=== PATIENT | male | born 1950 | race Two or more races ===

== ENCOUNTER 2017-03-08 10:27 | Emergency (ER) | payer OTHER ==
[2017-03-08 10:51] VITALS: BMI 39.4
--- NOTE | 2017-03-08 11:32 | PDOC ---
History of Present Illness - General Chief Complaint: Cold Symptoms Stated Complaint: COLD, COUGH Time Seen by Provider: 03/08/17 11:00 History Source: Patient Exam Limitations: No Limitations - History of Present Illness Initial Comments: 03/08/17 11:27 66 y.o. M with pmh of htn, hld, asthma/COPD, and atrial fibrillation presenting with productive cough x 1 day. Patient states he began having cough productive of white sputum that began yesterday and gradually worsened. Patient endorses rhinorrhea. Patient denies fever, chills, chest pain, sob, dyspnea on exertion, n/v/d/c, hemoptysis, lower extremity edema. Patient has been hospitalized in the past for asthma exacerbations but never been intubated. PSH- eye surgery ALL- NKDA SH- Denies PCP- Mariana Duenas Past History - Past Medical History Allergies/Adverse Reactions: Allergies Allergy/AdvReac Type Severity Reaction Status Date / Time No Known Allergies Allergy Verified 03/08/17 10:51 Home Medications: Ambulatory Orders Furosemide [Lasix -] 40 mg PO DAILY 08/23/12 Simvastatin [Zocor -] 20 mg PO DAILY 08/23/12 Tiotropium [place] [Spiriva] 1 inh IH DAILY 08/23/12 Albuterol Sulfate [Proventil HFA Inhaler -] 1 - 2 inh PO TID #1 inhaler Brimonidine Tartrate/Timolol [Combigan 0.2%-0.5% Eye Drops] 1 drop OU TID Loteprednol Etabonate [Alrex] 1 drop OS BID 02/18/17 Albuterol Sulfate 0.042% [Ventolin 0.042% (Half-Strength) -] 1 amp NEB Q6H PRN # 0 amp 02/20/17 Apixaban [Eliquis -] 5 mg PO BID #60 tablet 02/20/17 Aspirin Coated [Ecotrin -] 81 mg PO DAILY tab 02/20/17 Budesonide/Formeterol Fumarate [SYMBICORT 160/4.5mcg -] 2 puff IH BID #1 inhaler 02/20/17 Digoxin [Lanoxin -] 0.125 mg PO DAILY #30 tablet 02/20/17 Diltiazem Cd [Cardizem Cd -] 240 mg PO DAILY #30 cap.cd.24h 02/20/17 Furosemide [Lasix -] 40 mg PO DAILY #0 tablet 02/20/17 Methimazole [Tapazole -] 5 mg PO DAILY #30 tablet 02/20/17 Prednisone [Deltasone -] 20 mg PO DAILY #20 tablet 02/20/17 Tiotropium [place] [Spiriva] 1 puff IH DAILY #0 inh 02/20/17 Apixaban [Eliquis] 5 mg PO DAILY 03/08/17 Asthma: Yes Cancer: No Cardiac Disorders: Yes (CHF) COPD: Yes Diabetes: Yes HTN: Yes Hypercholesterolemia: Yes - Immunization History Immunization Up to Date: Yes - Suicide/Smoking/Psychosocial Hx Smoking Status: No Smoking History: Former smoker Have you smoked in the past 12 months: No Number of Cigarettes Smoked Daily: 0 If you are a former smoker, when did you quit?: 1979 Information on smoking cessation initiated: No Hx Alcohol Use: No Drug/Substance Use Hx: No Substance Use Type: None Hx Substance Use Treatment: No Review of Systems - Review of Systems Able to Perform ROS?: Yes Comments:: 03/08/17 11:30 GENERAL/CONSTITUTIONAL: No fever or chills. No weakness. HEAD, EYES, EARS, NOSE AND THROAT: No change in vision. No ear pain or discharge. No sore throat. +rhinorrhea CARDIOVASCULAR: No chest pain or shortness of breath RESPIRATORY: +cough, +wheezing, No hemoptysis. GASTROINTESTINAL: No nausea, vomiting, diarrhea or constipation. GENITOURINARY: No dysuria, frequency, or change in urination. MUSCULOSKELETAL: No joint or muscle swelling or pain. No neck or back pain. SKIN: No rash NEUROLOGIC: No headache, vertigo, loss of consciousness, or change in strength/ sensation. ENDOCRINE: No increased thirst. No abnormal weight change HEMATOLOGIC/LYMPHATIC: No anemia, easy bleeding, or history of blood clots. ALLERGIC/IMMUNOLOGIC: No hives or skin allergy. *Physical Exam - Vital Signs Last Vital Signs Temp Pulse Resp BP Pulse Ox 98.9 F 94 H 18 122/58 96 03/08/17 10:42 03/08/17 10:42 03/08/17 10:42 03/08/17 10:42 03/08/17 10:42 - Physical Exam Comments: 03/08/17 11:30 GENERAL: Awake, alert, and fully oriented, in no acute distress HEAD: No signs of trauma, normocephalic, atraumatic EYES: PERRLA, EOMI, sclera anicteric, conjunctiva injected ENT: Auricles normal inspection, hearing grossly normal, nares patent, oropharynx clear without exudates. Moist mucosa NECK: Normal ROM, supple, no lymphadenopathy, JVD, or masses LUNGS: No distress, speaks full sentences, clear to auscultation bilaterally, poor air movement HEART: Regular rate and rhythm, normal S1 and S2, no murmurs, rubs or gallops, peripheral pulses normal and equal bilaterally. ABDOMEN: Soft, nontender, normoactive bowel sounds. No guarding, no rebound. No masses EXTREMITIES: Normal inspection, Normal range of motion, no edema. No clubbing or cyanosis. NEUROLOGICAL: Cranial nerves II through XII grossly intact. Normal speech, normal gait, no focal sensorimotor deficits SKIN: Warm, Dry, normal turgor, no rashes or lesions noted. ED Treatment Course - LABORATORY CBC & Chemistry Diagram: 03/08/17 11:52 03/08/17 11:52 - RADIOLOGY Radiology Studies Ordered: Category Date Time Status CHEST PA & LAT [RAD] Stat Radiology 03/08/17 11:20 Ordered Medical Decision Making - Medical Decision Making 03/08/17 11:32 66 y.o M with pmh of asthma presenting with productive cough x 1 day. Differential: URI, Pneumonia, Influenza Plan: CBC, CMP, BNP, EKG, CXR, Influenza swab, CT chest 03/08/17 17:10 CXR-recommends CT Chest for evaluation of hilar LAD CT chest- no acute changes. Report faxed to PCP. Patient stable for D.c *DC/Admit/Observation/Transfer Diagnosis at time of Disposition: Acute bronchitis Qualifiers: Bronchitis organism: unspecified organism Qualified Code(s): J20.9 - Acute bronchitis, unspecified; J20.9 - Acute bronchitis, unspecified - Discharge Dispostion Disposition: HOME Condition at time of disposition: Stable - Referrals Referrals: Mariana Smith [Primary Care Provider] - - Patient Instructions Printed Discharge Instructions: DI for Acute Bronchitis Additional Instructions: follow up with dr. Santos this week. call tomorrow to schedule. return for any problems or concerns.
--- NOTE | 2017-03-08 11:58 | PDOC ---
Attending Attestation - Resident Resident Name: AndriarayrayRaull - ED Attending Attestation I have performed the following: I have examined & evaluated the patient, The case was reviewed & discussed with the resident, I agree w/resident's findings & plan, Exceptions are as noted - HPI HPI: 03/08/17 11:57 66 yo male with h/o htn, asthma/ copd, afib on pradaxa, chf, here with cough x 1 days. productive white sputum. no cp no fever or chills. no sob. mild rhinorrhea. no f/c. no n/v no cp or sob. no other complaints. 03/08/17 13:42 03/08/17 14:19 chart review. pt was admitted with wheezing one month ago. was evaluated with ct chest. showed concerns for infiltrate. tx with nebs abx. was seen by dr. hernandez, . had recent follow up with dr fuentes ( [facility] in [place] ) . [phone] 03/08/17 14:21 - Physicial Exam PE: 03/08/17 13:43 awake alert lungs clear heart rrr no mrg. abd soft nd. ext wpp. left eye injected. eomi. nuero alert oriented. skin warm and dry. 03/08/17 14:21 - Medical Decision Making 03/08/17 13:44 plan differential bronchtis, pna, viral uri, plan cxr labs ekg. reassess labs normal. ekg sinus rhytm. no st elevation or depression. left axis. sxs mild normal exam. will dc home. has followup for eye tomorrow with opthomologist. 03/08/17 14:21 Heart Score/ECG Review #1 General ECG Interpretation: Sinus Rhythm, Normal Rate (77), Normal Intervals, No acute ischemic changes
[2017-03-08 12:09] LABS: BASOPHIL 0.8 % (0-2.0); EOSINOPHIL 5.7 % (0-4.5); MCH 28.4 pg (25.7-33.7); MCHC 32.2 g/dl (32.0-35.9); MEAN CELL VOLUME 88.3 fl (80-96); MEAN PLT VOLUME 8.5 fl (7.5-11.1); NEUTROPHILS 50.9 % (42.8-82.8); PLATELET COUNT 182 K/MM3 (134-434); RDW 16.2 % (11.9-15.9); WHITE BLOOD COUNT 6.5 K/mm3 (4.0-10.0)
[2017-03-08 12:26] LABS: ALBUMIN 3.3 g/dl (3.4-5.0); ANION GAP 6 (8-16); BILIRUBIN,TOTAL 0.6 mg/dL (0.2-1.0); CALCIUM 9.4 mg/dL (8.5-10.1); CO2 33 mmol/L (21-32); CREATININE 0.8 mg/dL (0.7-1.3); GLUCOSE,RANDOM 100 mg/dL (74-106); SGOT/AST 23 U/L (15-37); SGPT/ALT 42 U/L (12-78); TOT PROT 7.3 g/dl (6.4-8.2)
[2017-03-08 12:27] LABS: ALK PHOS 68 U/L (45-117)
[2017-03-08 17:20] VITALS: BP 143/73; PULSE 83; TEMP 98.5
--- NOTE | 2017-03-09 09:14 | EKG ---
Test Reason : Blood Pressure : / mmHG Vent. Rate : 077 BPM Atrial Rate : 077 BPM P-R Int : 168 ms QRS Dur : 104 ms QT Int : 360 ms P-R-T Axes : 066 -51 069 degrees QTc Int : 407 ms NORMAL SINUS RHYTHM LEFT AXIS DEVIATION INFERIOR INFARCT (CITED ON OR BEFORE 08-MAR-2017) ABNORMAL ECG WHEN COMPARED WITH ECG OF 13-FEB-2017 15:45, NO SIGNIFICANT CHANGE WAS FOUND Confirmed by BURT MCLAUGHLIN MD ([id number]) on 03/09/2017 9:13:30 AM Referred By: Confirmed By:BURT MCLAUGHLIN MD
== END 2017-03-08 17:20 | disposition home or self-care (01) ==
LOC: JER 10:27
DX: J20.9 Acute bronchitis, unspecified (principal); I10 Essential (primary) hypertension; I48.91 Unspecified atrial fibrillation; I50.9 Heart failure, unspecified; J45.909 Unspecified asthma, uncomplicated; J44.9 Chronic obstructive pulmonary disease, unspecified; E78.5 Hyperlipidemia, unspecified; E11.9 Type 2 diabetes mellitus without complications; Z79.01 Long term (current) use of anticoagulants; Z79.82 Long term (current) use of aspirin; Z87.891 Personal history of nicotine dependence
CPT/HCPCS: 36415; 71020-TC; 71260-TC; 80053; 83880; 85025; 87804; 93005; 93010; 99284-25

== ENCOUNTER 2017-11-07 18:39 | Emergency (ER) | payer OTHER ==
--- NOTE | 2017-11-07 18:51 | PDOC ---
Rapid Medical Evaluation Chief Complaint: Wound Time Seen by Provider: 11/07/17 18:42 Medical Evaluation: Allergies Allergy/AdvReac Type Severity Reaction Status Date / Time No Known Allergies Allergy Verified 11/07/17 18:43 11/07/17 18:47 I have performed a brief in-person evaluation of this patient. The patient presents with a chief complaint of:RLE redness and itching x 3 days. H/o HTN, asthma/copd, afib on pradaxa, CHF Pertinent physical exam findings: extensive area of non-blanchable, erythematous patch to RLE w/ ? multiple bites I have ordered the following:labs The patient will proceed to the ED for further evaluation. Discharge Disposition - Diagnosis Rash and nonspecific skin eruption - Referrals - Patient Instructions - Post Discharge Activity
[2017-11-07 18:52] VITALS: BMI 37.5
[2017-11-07 19:04] LABS: EOS % 3.2 % (0-4.5); HEMATOCRIT 46.7 % (35.4-49); HEMOGLOBIN 15.4 GM/dL (11.7-16.9); LYMPH % 32.5 % (8-40); MCH 28.8 pg (25.7-33.7); MEAN CELL VOLUME 87.1 fl (80-96); MEAN PLT VOLUME 8.7 fl (7.5-11.1); MONO % 9.5 % (3.8-10.2); NEUT % 53.8 % (42.8-82.8); PLATELET COUNT 307 K/MM3 (134-434); RBC 5.37 M/mm3 (4.00-5.60); RDW 15.4 % (11.9-15.9); WHITE BLOOD COUNT 10.3 K/mm3 (4.0-10.0)
--- NOTE | 2017-11-07 20:06 | PDOC ---
History of Present Illness - General Chief Complaint: Wound Stated Complaint: BITE WOUND Time Seen by Provider: 11/07/17 18:42 - History of Present Illness Initial Comments: 11/07/17 20:02 67 year old male with a hx of HTN, HLD, COPD, A fib (not on AC), CHF presents to the hospital for 2 day hx RLE erythema. He states that he was in his garage and thinks he may have been bitten by mosquitos. He reports that his right leg has been progressively becoming more red and pruritic. He tried hydrocortisone cream, which did not alleviate his symptoms. Denies chest pain, SOB, nausea, vomiting, diarrhea, fevers, chills. Allergies: motrin PSH: L eye surgery many years ago Smoke: former Drink: none Drugs: none PMD: Dr. Smith Past History - Past Medical History Allergies/Adverse Reactions: Allergies Allergy/AdvReac Type Severity Reaction Status Date / Time No Known Allergies Allergy Verified 11/07/17 18:43 Home Medications: Ambulatory Orders Furosemide [Lasix -] 40 mg PO DAILY 08/23/12 Simvastatin [Zocor -] 20 mg PO DAILY 08/23/12 Tiotropium [place] [Spiriva] 1 inh IH DAILY 08/23/12 Albuterol Sulfate [Proventil HFA Inhaler -] 1 - 2 inh PO TID #1 inhaler Brimonidine Tartrate/Timolol [Combigan 0.2%-0.5% Eye Drops] 1 drop OU TID Loteprednol Etabonate [Alrex] 1 drop OS BID 02/18/17 Albuterol Sulfate 0.042% [Ventolin 0.042% (Half-Strength) -] 1 amp NEB Q6H PRN # 0 amp 02/20/17 Apixaban [Eliquis -] 5 mg PO BID #60 tablet 02/20/17 Aspirin Coated [Ecotrin -] 81 mg PO DAILY tab 02/20/17 Budesonide/Formeterol Fumarate [SYMBICORT 160/4.5mcg -] 2 puff IH BID #1 inhaler 02/20/17 Digoxin [Lanoxin -] 0.125 mg PO DAILY #30 tablet 02/20/17 Diltiazem Cd [Cardizem Cd -] 240 mg PO DAILY #30 cap.cd.24h 02/20/17 Furosemide [Lasix -] 40 mg PO DAILY #0 tablet 02/20/17 Methimazole [Tapazole -] 5 mg PO DAILY #30 tablet 02/20/17 Tiotropium [place] [Spiriva] 1 puff IH DAILY #0 inh 02/20/17 predniSONE [Deltasone -] 20 mg PO DAILY #20 tablet 02/20/17 Apixaban [Eliquis] 5 mg PO DAILY 03/08/17 Amoxicillin/Potassium Clav [Augmentin 875-125 Tablet] 1 each PO BID #18 tablet 11/07/17 Asthma: Yes Cancer: No Cardiac Disorders: Yes (CHF) COPD: Yes Diabetes: Yes HTN: Yes Hypercholesterolemia: Yes - Immunization History Immunization Up to Date: Yes - Suicide/Smoking/Psychosocial Hx Smoking Status: No Smoking History: Never smoked Have you smoked in the past 12 months: No Number of Cigarettes Smoked Daily: 0 If you are a former smoker, when did you quit?: 1979 Hx Alcohol Use: No Drug/Substance Use Hx: No Substance Use Type: None Hx Substance Use Treatment: No Review of Systems - Review of Systems Constitutional: No: Chills, Fever Respiratory: No: Cough, Shortness of Breath Cardiac (ROS): No: Chest Pain ABD/GI: No: Diarrhea, Nausea, Vomiting Integumentary: Yes: Erythema, Rash Neurological: No: Headache *Physical Exam - Vital Signs Last Vital Signs Temp Pulse Resp BP Pulse Ox 99.1 F 96 H 20 150/81 96 11/07/17 18:46 11/07/17 18:46 11/07/17 18:46 11/07/17 18:46 11/07/17 18:46 - Physical Exam Comments: 11/07/17 20:13 GENERAL: A&Ox3, no acute distress EYES: PERRLA, EOMI ENT: Moist mucus membranes NECK: No JVD LUNGS: CTA, no wheezes HEART: RRR, no murmurs ABDOMEN: Obese, Soft, nontender, BS present MUSCULOSKELETAL: No CVA Tenderness EXTREMITIES: 2+ pulses, no edema. R leg, well-demarcated erythema with several dark puncture wounds noted. L leg normal NEUROLOGICAL: Cranial nerves II-XII intact. ED Treatment Course - LABORATORY CBC & Chemistry Diagram: 11/07/17 18:54 11/07/17 18:54 - ADDITIONAL ORDERS Additional order review: 11/07/17 18:54 RBC 5.37 MCV 87.1 MCHC 33.0 RDW 15.4 MPV 8.7 Neutrophils % 53.8 Lymphocytes % 32.5 Monocytes % 9.5 Eosinophils % 3.2 Basophils % 1.0 Medical Decision Making - Medical Decision Making 11/07/17 20:12 67 year old male with a hx of HTN, HLD, COPD, A fib (not on AC), CHF presents to the hospital for 2 day hx RLE erythema. Differentials: Cellulitis, RLE DVT Plan: CBC CMP Duplex RLE to r/o DVT and fluid collections PO augmentin 875 Will re-evaluate 11/07/17 21:45 -US RLE negative for DVT, only revealing Reardon's cyst. -will d/c home with 9 more days of Augmentin 875 *DC/Admit/Observation/Transfer Diagnosis at time of Disposition: Cellulitis of right anterior lower leg - Discharge Dispostion Disposition: HOME Decision to Admit order: No - Prescriptions Prescriptions: Amoxicillin/Potassium Clav [Augmentin 875-125 Tablet] 1 each PO BID #18 tablet - Referrals Referrals: Mariana Smith [Primary Care Provider] - - Patient Instructions Additional Instructions: You were seen in the hospital for right leg cellulitis, an infection of your skin. Please take Augmentin 875 twice a day for 9 more days. Please return if your symptoms get worse. - Post Discharge Activity
[2017-11-07] MEDS ORDERED: AMOX TR/POT CLAV 875MG/125MG TABLETS (FP) PO ONE (20:08)
[2017-11-07 20:13] LABS: ALBUMIN 3.5 g/dl (3.4-5.0); ANION GAP 9 (8-16); BILIRUBIN,TOTAL 0.5 mg/dL (0.2-1.0); CALCIUM 9.8 mg/dL (8.5-10.1); CHLORIDE 99 mmol/L (98-107); CO2 29 mmol/L (21-32); GLUCOSE,RANDOM 106 mg/dL (74-106); POTASSIUM 3.9 mmol/L (3.5-5.1); SGPT/ALT 34 U/L (12-78); SODIUM 137 mmol/L (136-145); TOT PROT 8.4 g/dl (6.4-8.2)
--- NOTE | 2017-11-07 20:15 | PDOC ---
Attending Attestation - HPI HPI: 11/07/17 20:21 The patient is a 67 year old male with a significant PMH of HTN, HLD, COPD, A fib (not on AC), and CHF who presents to the emergency department with right lower extremity erythema and itchiness for the past two days. Patient reports he may have been bitten by mosquitoes while in his garage. Patient states he used hydrocortisone cream at home with no relief of his symptoms. The patient denies chest pain, shortness of breath, headache and dizziness. Denies fever, chills, nausea, vomit, diarrhea and constipation. Denies dysuria, frequency, urgency and hematuria. Allergies: motrin Past surgical history: L eye surgery many years ago Social history: Former smoker. No reported alcohol or drug use. PCP: Dr. Smith - Physicial Exam PE: 11/07/17 20:23 GENERAL: Well-appearing, well-nourished. No apparent distress. HEENT: Normocephalic, atraumatic. PERRL, EOM intact. CARDIOVASCULAR: Normal S1, S2. Regular rate and rhythm. PULMONARY: Clear to auscultation bilaterally. ABDOMEN: Soft, non-distended, non-tender. EXTREMITIES: 2+ pulses, no edema. (+) Right leg with erythema and several dark puncture wounds. Left leg is normal. Normal ROM in all four extremities. No gross deformities. SKIN: Warm, dry. No rash NEUROLOGICAL: No focal neurological deficits. <Hilda Montero - Last Filed: 11/07/17 20:23> - Resident Resident Name: Neo Sanabria - Medical Decision Making 11/07/17 21:46 Pt treated and released. Rx Augmentin. Follow up with pcp. <Orestes Rodriguez - Last Filed: 11/07/17 21:47>
[2017-11-07 20:40] LABS: ALK PHOS 80 U/L (45-117); BLOOD UREA NITROGEN 19 mg/dL (7-18); SGOT/AST 26 U/L (15-37)
[2017-11-07] MEDS ORDERED: AMOX TR/POT CLAV 875MG/125MG TABLETS (FP) ONE (20:46)
[2017-11-07 22:27] VITALS: BP 145/76; PULSE 75; TEMP 98.2
== END 2017-11-07 22:24 | disposition home or self-care (01) ==
LOC: JER 18:39
DX: L03.115 Cellulitis of right lower limb (principal); I10 Essential (primary) hypertension; E78.5 Hyperlipidemia, unspecified; J44.9 Chronic obstructive pulmonary disease, unspecified; I48.91 Unspecified atrial fibrillation
CPT/HCPCS: 36415; 80053; 85025; 93971-TC; 99282-25

== ENCOUNTER 2018-08-11 10:01 | Emergency (ER) | payer OTHER ==
[2018-08-11 10:11] VITALS: BMI 39.8
[2018-08-11] MEDS ORDERED: ALBUTEROL SO4 2.5/IPRATROPIUM 0.5 INH SOL 3 ML VIAL.NEB. NEB ONE ×2 (10:44→10:51)
--- NOTE | 2018-08-11 12:45 | PDOC ---
History of Present Illness - General Chief Complaint: Asthma Stated Complaint: ASTHMA Time Seen by Provider: 08/11/18 10:28 - History of Present Illness Initial Comments: 08/11/18 12:41 68 years old with past medical history significant for hypertension presents to the emergency department with several day history of cough congestion. Patient has been using his nebulizer machine at home he will presents to the emergency department today at his 's request to be evaluated for his cough to rule out pneumonia No fever no chills no body aches no productive sputum some nasal congestion currently has been feeling better over the last 2 days. Symptoms are moderate improving with time. Past History - Past Medical History Allergies/Adverse Reactions: Allergies Allergy/AdvReac Type Severity Reaction Status Date / Time No Known Allergies Allergy Verified 08/11/18 10:45 Home Medications: Ambulatory Orders Furosemide [Lasix -] 40 mg PO DAILY 08/23/12 Simvastatin [Zocor -] 20 mg PO DAILY 08/23/12 Tiotropium [place] [Spiriva] 1 inh IH DAILY 08/23/12 Albuterol Sulfate [Proventil HFA Inhaler -] 1 - 2 inh PO TID #1 inhaler Brimonidine Tartrate/Timolol [Combigan 0.2%-0.5% Eye Drops] 1 drop OU TID Loteprednol Etabonate [Alrex] 1 drop OS BID 02/18/17 Albuterol Sulfate 0.042% [Ventolin 0.042% (Half-Strength) -] 1 amp NEB Q6H PRN # 0 amp 02/20/17 Apixaban [Eliquis -] 5 mg PO BID #60 tablet 02/20/17 Aspirin Coated [Ecotrin -] 81 mg PO DAILY tab 02/20/17 Budesonide/Formeterol Fumarate [SYMBICORT 160/4.5mcg -] 2 puff IH BID #1 inhaler 02/20/17 Digoxin [Lanoxin -] 0.125 mg PO DAILY #30 tablet 02/20/17 Diltiazem Cd [Cardizem Cd -] 240 mg PO DAILY #30 cap.cd.24h 02/20/17 Furosemide [Lasix -] 40 mg PO DAILY #0 tablet 02/20/17 Methimazole [Tapazole -] 5 mg PO DAILY #30 tablet 02/20/17 Tiotropium [place] [Spiriva] 1 puff IH DAILY #0 inh 02/20/17 predniSONE [Deltasone -] 20 mg PO DAILY #20 tablet 02/20/17 Apixaban [Eliquis] 5 mg PO DAILY 03/08/17 Amoxicillin/Potassium Clav [Augmentin 875-125 Tablet] 1 each PO BID #18 tablet 11/07/17 Asthma: Yes Cancer: No Cardiac Disorders: Yes (CHF) COPD: Yes DVT: No Diabetes: Yes HTN: Yes Hypercholesterolemia: Yes - Immunization History Immunization Up to Date: Yes - Suicide/Smoking/Psychosocial Hx Smoking Status: No Smoking History: Never smoked Have you smoked in the past 12 months: No Number of Cigarettes Smoked Daily: 0 If you are a former smoker, when did you quit?: 1979 Information on smoking cessation initiated: No Hx Alcohol Use: No Drug/Substance Use Hx: No Substance Use Type: None Hx Substance Use Treatment: No Review of Systems - Review of Systems Comments:: 08/11/18 12:41 ROS: A complete review of 10 out of 10 review of systems is taken and is negative apart from what is previously mentioned below and in the HPI. *Physical Exam - Vital Signs Last Vital Signs Temp Pulse Resp BP Pulse Ox 98.8 F 92 H 18 142/78 97 08/11/18 10:06 08/11/18 10:06 08/11/18 10:06 08/11/18 10:06 08/11/18 10:47 - Physical Exam Comments: 08/11/18 12:41 Vitals: Triage Vital signs reviewed General Appearance: no acute distress, well nourished well developed, Head: Atraumatic, Nose: Nares patent bilaterally;+ nasal congestion Throat: Posterior oropharynx without erythema, mucous membranes moist, Neck: Supple;No Nucal rigidity Chest Wall: Nontender Cardiac: Regular rate and rhythym, no murmurs, no rubs, no gallops, Lungs: Clear to auscultation bilateral, good air movement bilaterally, Abdomen: Soft, non distended, normal bowel sounds, non tender to palpation] Extremities: Full range of motion to all extremities, no cyanosis, clubbing, or edema Skin: Warm and dry, no rashes or lesions, no rash, no petechiae Psych: normal mood, normal affect Moderate Sedation - Procedure Monitoring Vital Signs: Procedure Monitoring Vital Signs Temperature 98.8 F 08/11/18 10:06 Pulse Rate 92 H 08/11/18 10:06 Respiratory Rate 18 08/11/18 10:06 Blood Pressure 142/78 08/11/18 10:06 O2 Sat by Pulse Oximetry (%) 97 08/11/18 10:47 ED Treatment Course - RADIOLOGY Radiology Studies Ordered: Category Date Time Status CXRPORT [CHEST X-RAY PORTABLE*] [RAD] Stat Radiology 08/11/18 10:44 Completed - Medications Given in the ED: ED Medications Discontinued Medications Generic Name Dose Route Start Last Admin Trade Name Freq PRN Reason Stop Dose Admin Albuterol/Ipratropium 1 amp 08/11/18 10:44 08/11/18 10:57 Duoneb - NEB 08/11/18 10:45 1 amp ONCE ONE Administration Medical Decision Making - Medical Decision Making 08/11/18 12:42 68 years old no past medical history except for hypertension and asthma presents to the ED for cough to rule out pneumonia Chest x-ray were no evidence of pneumonia Patient feels much better status post 1 DuoNeb states he has nebulizes home. Chest x-ray did demonstrate some cardiomegaly which was discussed with patient I provided the patient a copy of his report to follow-up with his doctor in 1-2 days Findings, the need for follow-up and strict return instructions discussed with patient. *DC/Admit/Observation/Transfer Diagnosis at time of Disposition: Asthma Qualifiers: Asthma severity: mild Asthma persistence: intermittent Asthma complication type : uncomplicated Qualified Code(s): J45.20 - Mild intermittent asthma, uncomplicated - Discharge Dispostion Disposition: HOME Decision to Admit order: No - Referrals - Patient Instructions Printed Discharge Instructions: Asthma -- Adult Additional Instructions: Take [id number] Robitussin as directed on package as needed for cough. Continue nebulizer machine as needed. Follow-up with your doctor tomorrow to discuss the findings on x-ray. Return to ED for any severe worsening symptoms any chest pain or for any concerns. - Post Discharge Activity
[2018-08-11 13:06] VITALS: BP 126/87; PULSE 80; TEMP 98.2
== END 2018-08-11 13:06 | disposition home or self-care (01) ==
LOC: JER 10:01 → SUPCPDRO 10:01 → JER 13:06
PROC: 3E0F7GC Introduction of Other Therapeutic Substance into Respiratory Tract, Via Natural or Artificial Opening (ICD-10-PCS; principal; 2018-08-11)
DX: J45.20 Mild intermittent asthma, uncomplicated (principal); J44.9 Chronic obstructive pulmonary disease, unspecified; I11.0 Hypertensive heart disease with heart failure; I50.9 Heart failure, unspecified; E78.00 Pure hypercholesterolemia, unspecified; E11.9 Type 2 diabetes mellitus without complications
CPT/HCPCS: 71045-TC-FY; 94640; 99283-25

== ENCOUNTER 2018-08-28 22:02 | Inpatient (IN) | payer OTHER ==
[2018-08-28] MEDS ORDERED: predniSONE 20 MG TABLET (UD) PO ONE (22:45)
--- NOTE | 2018-08-28 22:45 | PDOC ---
Attending Attestation - HPI HPI: 08/28/18 22:57 The patient is a 68 YOF with a PMH of asthma, CHF, COPD, DM, HTN, and HLD who presents with lower lip swelling since 7PM today. Patient is currently on Lotrel. Patient denies any tongue swelling or difficulty breathing. Patient has not taken any other medications at home prior to coming to the ER. Allergies: NKDA Social: Denies any toxic habits Surgeries: None reported. - Physicial Exam PE: 08/28/18 22:52 Agree with resident's exam. <Hilda Montero - Last Filed: 08/28/18 23:01> - Resident Resident Name: Celio Minor - ED Attending Attestation I have performed the following: I have examined & evaluated the patient, The case was reviewed & discussed with the resident, I agree w/resident's findings & plan - Medical Decision Making 08/29/18 01:27 68-year-old male with swelling to the lower lip consistent with angioedema Likely secondary to nataly inhibitor use Patient given sign Medrol and Benadryl on arrival with improvement on reevaluation at 1:25 AM Patient will be held overnight in the ICU for airway monitoring <Baylee Estes - Last Filed: 08/29/18 01:27>
[2018-08-28] MEDS ORDERED: diphenhydrAMINE HCL 25 MG CAPSULE (FP) PO ONE ×2 (22:46→22:55)
--- NOTE | 2018-08-28 22:54 | PDOC ---
History of Present Illness - General Chief Complaint: Edema Stated Complaint: Swollen lip Time Seen by Provider: 08/28/18 22:35 - History of Present Illness Initial Comments: 08/28/18 22:59 67 year old male with a hx of Asthma, HTN, HLD, COPD, A fib (not on AC), CHF presents to the Ed with lower lip swelling since 7pm. No difficulty breathing. No new medications or new foods. Never had such an episode happen to him before. Has been on VICTORIANO inhibitors for a while (Amlodipine/Benazepril) doesn't remember exactly how long. Denies any rash or pruritus. Past History - Past Medical History Allergies/Adverse Reactions: Allergies Allergy/AdvReac Type Severity Reaction Status Date / Time No Known Allergies Allergy Verified 08/28/18 22:33 Home Medications: Ambulatory Orders Furosemide [Lasix -] 40 mg PO DAILY 08/23/12 Simvastatin [Zocor -] 20 mg PO DAILY 08/23/12 Tiotropium [place] [Spiriva] 1 inh IH DAILY 08/23/12 Albuterol Sulfate [Proventil HFA Inhaler -] 1 - 2 inh PO TID #1 inhaler Brimonidine Tartrate/Timolol [Combigan 0.2%-0.5% Eye Drops] 1 drop OU TID Loteprednol Etabonate [Alrex] 1 drop OS BID 02/18/17 Albuterol Sulfate 0.042% [Ventolin 0.042% (Half-Strength) -] 1 amp NEB Q6H PRN # 0 amp 02/20/17 Apixaban [Eliquis -] 5 mg PO BID #60 tablet 02/20/17 Aspirin Coated [Ecotrin -] 81 mg PO DAILY tab 02/20/17 Budesonide/Formeterol Fumarate [SYMBICORT 160/4.5mcg -] 2 puff IH BID #1 inhaler 02/20/17 Digoxin [Lanoxin -] 0.125 mg PO DAILY #30 tablet 02/20/17 Diltiazem Cd [Cardizem Cd -] 240 mg PO DAILY #30 cap.cd.24h 02/20/17 Furosemide [Lasix -] 40 mg PO DAILY #0 tablet 02/20/17 Methimazole [Tapazole -] 5 mg PO DAILY #30 tablet 02/20/17 Tiotropium [place] [Spiriva] 1 puff IH DAILY #0 inh 02/20/17 predniSONE [Deltasone -] 20 mg PO DAILY #20 tablet 02/20/17 Apixaban [Eliquis] 5 mg PO DAILY 03/08/17 Amoxicillin/Potassium Clav [Augmentin 875-125 Tablet] 1 each PO BID #18 tablet 11/07/17 Asthma: Yes Cancer: No Cardiac Disorders: Yes (CHF) COPD: Yes DVT: No Diabetes: Yes HTN: Yes Hypercholesterolemia: Yes - Immunization History Immunization Up to Date: Yes - Suicide/Smoking/Psychosocial Hx Smoking Status: No Smoking History: Former smoker Have you smoked in the past 12 months: No Number of Cigarettes Smoked Daily: 0 If you are a former smoker, when did you quit?: 1979 Information on smoking cessation initiated: No Hx Alcohol Use: No Drug/Substance Use Hx: No Substance Use Type: None Hx Substance Use Treatment: No Review of Systems - Review of Systems Able to Perform ROS?: Yes Is the patient limited Tongan proficient: No Constitutional: No: Symptoms Reported HEENTM: Yes: See HPI Respiratory: No: SOB with Exertion Cardiac (ROS): No: Symptoms Reported ABD/GI: No: Symptoms Reported : No: Symptoms Reported Musculoskeletal: No: Symptoms Reported Integumentary: No: Symptoms Reported Neurological: No: Symptoms reported All Other Systems: Reviewed and Negative *Physical Exam - Vital Signs Last Vital Signs Temp Pulse Resp BP Pulse Ox 97.2 F L 73 22 H 111/65 100 08/28/18 22:31 08/28/18 22:31 08/28/18 22:31 08/28/18 22:31 08/28/18 22:31 - Physical Exam General Appearance: Yes: Nourished, Appropriately Dressed. No: Apparent Distress HEENT: positive: Other (angioedema of the lower lip. ) Respiratory/Chest: positive: Lungs Clear, Normal Breath Sounds. negative: Chest Tender, Respiratory Distress Cardiovascular: positive: Regular Rhythm, Regular Rate, S1, S2 Gastrointestinal/Abdominal: positive: Normal Bowel Sounds, Soft. negative: Tender Musculoskeletal: positive: Normal Inspection. negative: CVA Tenderness Extremity: positive: Normal Capillary Refill, Normal Inspection, Normal Range of Motion Neurologic: positive: Fully Oriented, Alert, Normal Mood/Affect, Normal Response , Motor Strength 5/5 ED Treatment Course - LABORATORY CBC & Chemistry Diagram: 08/29/18 00:05 08/29/18 00:05 Medical Decision Making - Medical Decision Making 08/28/18 23:07 Angioedema of the lower lip from Victoriano-inhibitor. Treating with pednisone and benadryl. Will admit to unit *DC/Admit/Observation/Transfer Diagnosis at time of Disposition: Angioedema due to angiotensin converting enzyme inhibitor (VICTORIANO-I) - Discharge Dispostion Decision to Admit order: Yes - Referrals Referrals: Mariana Smith [Primary Care Provider] - - Patient Instructions - Post Discharge Activity
[2018-08-28] MEDS ORDERED: predniSONE 20 MG TABLET (UD) ONE (22:55)
[2018-08-29 00:21] LABS: BASO % 0.7 % (0-2.0); EOS % 1.7 % (0-4.5); HEMATOCRIT 44.2 % (35.4-49); HEMOGLOBIN 14.2 GM/dL (11.7-16.9); LYMPH % 21.2 % (8-40); MEAN CELL VOLUME 87.4 fl (80-96); MEAN PLT VOLUME 8.5 fl (7.5-11.1); MONO % 9.4 % (3.8-10.2); PLATELET COUNT 345 K/MM3 (134-434); RBC 5.06 M/mm3 (4.00-5.60); RDW 15.5 % (11.9-15.9); WHITE BLOOD COUNT 12.3 K/mm3 (4.0-10.0)
[2018-08-29 00:43] LABS: ALBUMIN 3.2 g/dl (3.4-5.0); ALK PHOS 75 U/L (45-117); BILIRUBIN,TOTAL 0.4 mg/dL (0.2-1); CALCIUM 9.3 mg/dL (8.5-10.1); CO2 36 mmol/L (21-32); CREATININE 0.8 mg/dL (0.55-1.3); POTASSIUM 4.2 mmol/L (3.5-5.1); SGOT/AST 25 U/L (15-37); SGPT/ALT 37 U/L (13-61); SODIUM 136 mmol/L (136-145); TOT PROT 8.5 g/dl (6.4-8.2)
[2018-08-29 01:06] LABS: ANION GAP 3 MMOL/L (8-16); BLOOD UREA NITROGEN 11 mg/dL (7-18); CHLORIDE 97 mmol/L (98-107); GLUCOSE,RANDOM 121 mg/dL (74-106)
[2018-08-29] MEDS ORDERED: DEXTROSE 5%-0.45% SALINE 1,000 ML IV SCH (02:15)
--- NOTE | 2018-08-29 03:56 | CONSULT ---
Consultation: REQUESTING PROVIDER: CONSULT REQUEST: We have been asked to medically evaluate this patient for ( Angioedema---ICU admission). HISTORY OF PRESENT ILLNESS: Patient is a 68 year old male presented to the ED from home after he noticed swelling of his lips. As per the patient he was apparently well until 7 pm last night, when he suddenly developed swelling of the lips hence came in to the ED for further evaluation. Patient denies dysphagia, odynophagia, drooling of saliva, difficulty in breathing, chest pain palpitations, abdominal pain, nausea or vomiting. Patient reports he hasn't eaten anything new but does mention he has been on KEE inhibitors (Amlodipine/Benazepril) for more than 10 yrs. And this is the first episode of lip swelling. Bowel/Bladder habit normal. Sleep/Appeitte normal prior to illness. Patient was seen in the ED on 08/11/18 for cough and shortness of breath, treated for Asthma exacerbation and was discharged from the ED. Patient reports he took Robitussin but didn't help that much. Patient also reports he has blepharospasm of the left eye for which he has been getting injections since 2 yrs. PAST MEDICAL HISTORY: Atrial fibrillation on Elliquis, CHF, obesity, asthma, hyperlipidemia, and chronic venous insufficiency ALLERGIES: NKDA PAST SURGICAL HISTORY: SOCIAL HISTORY: Smoking- Quit 40 yrs ago, smoked for 15 yrs, about 1 pack/day. Alcohol- Quit 10 yrs ago Drugs- Denies OCCUPATION: Retired, worked in [employer] TRAVEL: Not recently FAMILY HISTORY: Father from Stomach cancer. Mother-bed bound. REVIEW OF SYSTEMS: CONSTITUTIONAL: Absent: fever, chills, diaphoresis, generalized weakness, malaise, loss of appetite, weight change HEENT: Present: lip swelling + Absent: rhinorrhea, nasal congestion, throat pain, throat swelling, difficulty swallowing, mouth swelling, ear pain, eye pain, visual changes CARDIOVASCULAR: Absent: chest pain, syncope, palpitations, irregular heart rate, lightheadedness , peripheral edema RESPIRATORY: Absent: cough, shortness of breath, dyspnea with exertion, orthopnea, wheezing, stridor, hemoptysis GASTROINTESTINAL: Absent: abdominal pain, abdominal distension, nausea, vomiting, diarrhea, constipation, melena, hematochezia GENITOURINARY: Absent: dysuria, frequency, urgency, hesitancy, hematuria, flank pain, genital pain MUSCULOSKELETAL: Absent: myalgia, arthralgia, joint swelling, back pain, neck pain SKIN: Absent: rash, itching, pallor HEMATOLOGIC/IMMUNOLOGIC: Absent: easy bleeding, easy bruising, lymphadenopathy, frequent infections ENDOCRINE: Absent: unexplained weight gain, unexplained weight loss, heat intolerance, cold intolerance NEUROLOGIC: Absent: headache, focal weakness or paresthesias, dizziness, unsteady gait, seizure, mental status changes, bladder or bowel incontinence PSYCHIATRIC: Absent: anxiety, depression, suicidal or homicidal ideation, hallucinations. PHYSICAL EXAMINATION Vital Signs - 24 hr 08/28/18 22:31 Temperature 97.2 F L Pulse Rate 73 Respiratory 22 H Rate Blood Pressure 111/65 O2 Sat by Pulse 100 Oximetry (%) GENERAL: Middle aged male, sitting in bed, Awake, alert, and fully oriented, in no acute distress. EYES: EOM intact, no pallor or icterus, blepharospasm of the left eye. EARS, NOSE, THROAT: Ears normal. Moist mucous membranes, uvula is not swollen. NECK: Supple. LUNGS: B/L decreased breath sounds, occasional wheeze. HEART: Regular rate and rhythm, normal S1 and S2 with systolic murmur. ABDOMEN: Soft, nontender, no organomegaly, BS +. UPPER EXTREMITIES: No peripheral edema. LOWER EXTREMITIES: B/L pitting edema up to the knees. NEUROLOGICAL: Left sided facial droop, blepharospasm of the left eyes. Normal speech. Gait not observed. PSYCHIATRIC: Cooperative. Good eye contact. SKIN: No rashes or lesions. Laboratory Results - last 24 hr 08/29/18 08/29/18 00:05 00:05 WBC 12.3 H RBC 5.06 Hgb 14.2 Hct 44.2 MCV 87.4 MCH 28.0 MCHC 32.0 RDW 15.5 Plt Count 345 MPV 8.5 Absolute Neuts (auto) 8.3 H Neutrophils % 67.0 D Lymphocytes % 21.2 D Monocytes % 9.4 Eosinophils % 1.7 Basophils % 0.7 Nucleated RBC % 0 Sodium 136 Potassium 4.2 Chloride 97 L Carbon Dioxide 36 H Anion Gap 3 L BUN 11 Creatinine 0.8 Creat Clearance w eGFR 96.13 Random Glucose 121 H Calcium 9.3 Total Bilirubin 0.4 AST 25 ALT 37 Alkaline Phosphatase 75 Total Protein 8.5 H Albumin 3.2 L ASSESSMENT/PLAN: Patient is a 68 year old male with significant past medical history of Atrial fibrillation on Elliquis, CHF, obesity, asthma, hyperlipidemia, and chronic venous insufficiency presented to the ED from home after he noticed swelling of his lips. # Angioedema secondary to KEE inhibitor Has been on Amlodipine/Benazepril combination pill since > 10 yrs. This is his first episodes, no drooling, SOB or any other symptoms Admit to ICU for airway monitoring Adviced patient to stop KEE inhibitors Was given Prednisone and Benadryl in the ED Will continue Prednisone, Benadryl and Famotidine # Leukocytosis likely reactive WBC- 12.3, no signs of infection # Hyperthyroidism # Atrial fibrillation on Elliquis # CHF # Obesity # Asthma-not in exacerbation # Chronic venous insufficiency # FEN Not on IV fluids Electrolytes WNL NPO, advance diet as tolerated # Prophylaxis For DVT: SCDs, early ambulation For GI: On IV Famotidine # Code Status: Full Code # Dispo: Continue to monitor in ICU. Illness, Investigation and plan of care explained to the patient, he verbalized understanding. Case discussed with the ED resident. Dispo: We will continue to follow the patient. Thank you for this consultative opportunity.
[2018-08-29 05:22] LABS: HEMATOCRIT 43.8 % (35.4-49); HEMOGLOBIN 14.4 GM/dL (11.7-16.9); MCH 28.4 pg (25.7-33.7); MCHC 32.8 g/dl (32.0-35.9); MEAN CELL VOLUME 86.6 fl (80-96); MEAN PLT VOLUME 8.2 fl (7.5-11.1); PLATELET COUNT 335 K/MM3 (134-434); RBC 5.06 M/mm3 (4.00-5.60); RDW 15.1 % (11.9-15.9); WHITE BLOOD COUNT 11.7 K/mm3 (4.0-10.0)
[2018-08-29 05:34] LABS: INR 1.16 (0.83-1.09); PROTHROMBIN TIME (PATIENT) 13.7 SEC (9.7-13.0)
[2018-08-29 05:47] LABS: ANION GAP 4 MMOL/L (8-16); BLOOD UREA NITROGEN 11 mg/dL (7-18); CALCIUM 9.1 mg/dL (8.5-10.1); CHLORIDE 99 mmol/L (98-107); CO2 35 mmol/L (21-32); CREATININE 0.9 mg/dL (0.55-1.3); GLUCOSE,RANDOM 156 mg/dL (74-106); MAGNESIUM 2.1 mg/dL (1.8-2.4); POTASSIUM 4.6 mmol/L (3.5-5.1); SODIUM 138 mmol/L (136-145)
[2018-08-29] MEDS: FAMOTIDINE 20 MG/50 ML IVPB 20 MG/50 ML MG IVPB SCH ×3 (06:37→21:24)
--- NOTE | 2018-08-29 08:03 | HP ---
Admitting History and Physical - Primary Care Physician PCP: Mariana Smith - Admission Chief Complaint: Lower Lip Swelling History of Present Illness: This is a 68 y/o man with a PMHx of HTN, HLD, Afib (on Eliquis), COPD, Asthma, DM. Who presents to the ED with lower lip swelling since 1900 last night. Patient reports having tingling to his lower lip in the past, but he denies swelling. Patient reports taking Benazepril for a "long time". Patient denies dysphagia, drooling, SOB, wheezing. Patient denies fever, chills, dizziness, CP , palpitations, AP, N/V/D, constipation, dysuria. History Source: Patient Limitations to Obtaining History: No Limitations - Past Medical History Cardiovascular: Yes: AFIB, HTN, Hyperlipdemia Pulmonary: Yes: Asthma, COPD Endocrine: Yes: Diabetes Mellitus - Smoking History Smoking history: Former smoker Have you smoked in the past 12 months: No Aproximately how many cigarettes per day: 0 If you are a former smoker, when did you quit?: 1979 - Alcohol/Substance Use Hx Alcohol Use: No History of Substance Use: reports: None - Social History Usual Living Arrangement: Yes: With Spouse ADL: Independent History of Recent Travel: No Home Medications - Allergies Allergies/Adverse Reactions: Allergies Allergy/AdvReac Type Severity Reaction Status Date / Time No Known Allergies Allergy Verified 08/28/18 22:33 - Home Medications Home Medications: Ambulatory Orders Furosemide [Lasix -] 40 mg PO DAILY 08/23/12 Simvastatin [Zocor -] 20 mg PO DAILY 08/23/12 Tiotropium [place] [Spiriva] 1 inh IH DAILY 08/23/12 Albuterol Sulfate [Proventil HFA Inhaler -] 1 - 2 inh PO TID #1 inhaler Brimonidine Tartrate/Timolol [Combigan 0.2%-0.5% Eye Drops] 1 drop OU TID Loteprednol E[place] [Alrex] 1 drop OS BID 02/18/17 Albuterol Sulfate 0.042% [Ventolin 0.042% (Half-Strength) -] 1 amp NEB Q6H PRN # 0 amp 02/20/17 Apixaban [Eliquis -] 5 mg PO BID #60 tablet 02/20/17 Aspirin Coated [Ecotrin -] 81 mg PO DAILY tab 02/20/17 Budesonide/Formeterol Fumarate [SYMBICORT 160/4.5mcg -] 2 puff IH BID #1 inhaler 02/20/17 Digoxin [Lanoxin -] 0.125 mg PO DAILY #30 tablet 02/20/17 Diltiazem Cd [Cardizem Cd -] 240 mg PO DAILY #30 cap.cd.24h 02/20/17 Furosemide [Lasix -] 40 mg PO DAILY #0 tablet 02/20/17 Methimazole [Tapazole -] 5 mg PO DAILY #30 tablet 02/20/17 Tiotropium [place] [Spiriva] 1 puff IH DAILY #0 inh 02/20/17 predniSONE [Deltasone -] 20 mg PO DAILY #20 tablet 02/20/17 Apixaban [Eliquis] 5 mg PO DAILY 03/08/17 Amoxicillin/Potassium Clav [Augmentin 875-125 Tablet] 1 each PO BID #18 tablet 11/07/17 Physical Examination Vital Signs: Vital Signs Temperature 97.8 F 08/29/18 07:44 Pulse Rate 117 H 08/29/18 07:44 Respiratory Rate 20 08/29/18 07:44 Blood Pressure 169/104 H 08/29/18 07:44 O2 Sat by Pulse Oximetry (%) 88 L 08/29/18 07:44 Labs: CBC, BMP 08/29/18 05:10 08/29/18 05:10 Imaging - Results Chest X-ray: Report Reviewed, Image Reviewed EKG: Pending Problem List - Problems (1) Angioedema due to angiotensin converting enzyme inhibitor (KEE-I) Assessment/Plan: Continue cardiac monitoring Prednisone, Benadryl given in ED, will continue Chest Xray- reviewed Aspiration Precautions Appreciate Cardiology consult Hold ACEs NPO IVF Monitor CBC, BMP Code(s): T78.3XXA - ANGIONEUROTIC EDEMA, INITIAL ENCOUNTER; T46.4X5A - ADVERSE EFFECT OF [id number] INHIBITORS, INIT (2) HTN (hypertension) Assessment/Plan: stable Hold ACEs Will need to verify home medications with patient's pharmacy in am, patient unable to verify his meds Lopressor IV prn Code(s): I10 - ESSENTIAL (PRIMARY) HYPERTENSION (3) COPD (chronic obstructive pulmonary disease) Assessment/Plan: stable No acute flare Duonebs Will need to confirm home med with [facility] in am, pt unable to verify med CXR- reviewed Code(s): J44.9 - CHRONIC OBSTRUCTIVE PULMONARY DISEASE, UNSPECIFIED (4) Asthma Assessment/Plan: See above Code(s): J45.909 - UNSPECIFIED ASTHMA, UNCOMPLICATED Qualifiers: Asthma severity: mild Asthma persistence: intermittent Asthma complication type: uncomplicated Qualified Code(s): J45.20 - Mild intermittent asthma, uncomplicated (5) Afib Assessment/Plan: [id number] 3 EKG-pending Will need to verify meds with home pharmacy in am Cardizem IV prn for rate control Continue cardiac monitoring Code(s): I48.91 - UNSPECIFIED ATRIAL FIBRILLATION Qualifiers: Atrial fibrillation type: paroxysmal Qualified Code(s): I48.0 - Paroxysmal atrial fibrillation (6) HLD (hyperlipidemia) Assessment/Plan: Hold home med until verified Code(s): E78.5 - HYPERLIPIDEMIA, UNSPECIFIED Assessment/Plan This is a 68 y/o man with a PMHx of: HTN, HLD, DM, Asthma, COPD, Afib. Admitted to ICU for Angioedema for further evaluation of their emergent condition Plan: See Problem List FEN D51/2NS@75ml/hr Replete lytes prn NPO DVT ppx OOB SCDs Heparin SQ Code Status: Full Code Dispo: Requires Inpatient Care Visit type - Emergency Visit Emergency Visit: Yes ED Registration Date: 08/28/18 Care time: The patient presented to the Emergency Department on the above date and was hospitalized for further evaluation of their emergent condition. - New Patient This patient is new to me today: Yes Date on this admission: 08/29/18 - Critical Care Critical Care patient: Yes Total Critical Care Time (in minutes): 35 Critical Care Statement: The care of this patient involved high complexity decision making to prevent further life threatening deterioration of the patient 's condition and/or to evaluate & treat vital organ system(s) failure or risk of failure.
[2018-08-29] MEDS ORDERED: MUPIROCIN 2% TOPICAL OINTMENT FOR DECOLONIZATION NS SCH (10:00)
[2018-08-29] MEDS: predniSONE 20 MG TABLET (UD) PO SCH (10:31)
--- NOTE | 2018-08-29 11:46 | EKG ---
Test Reason : Blood Pressure : / mmHG Vent. Rate : 103 BPM Atrial Rate : 103 BPM P-R Int : 178 ms QRS Dur : 088 ms QT Int : 340 ms P-R-T Axes : 067 -48 056 degrees QTc Int : 445 ms SINUS TACHYCARDIA POSSIBLE LEFT ATRIAL ENLARGEMENT LEFT AXIS DEVIATION INFERIOR INFARCT (CITED ON OR BEFORE 08-MAR-2017) ABNORMAL ECG WHEN COMPARED WITH ECG OF 08-MAR-2017 11:46, NO SIGNIFICANT CHANGE WAS FOUND Confirmed by ELIANA POND MD ([id number]) on 08/29/2018 11:46:20 AM Referred By: Confirmed By:ELIANA POND MD
--- NOTE | 2018-08-29 11:49 | PN ---
Teaching Attending Note Name of Resident: Jeane Rodriguez ATTENDING PHYSICIAN STATEMENT I saw and evaluated the patient. I reviewed the resident's note and discussed the case with the resident. I agree with the resident's findings and plan as documented. SUBJECTIVE: Pt seen and examined in the ER. States tongue swelling has improved. Denies shortness of breath, dysphagia. No voice changes. Wants to eat. OBJECTIVE: Vital Signs Period Temp Pulse Resp BP Sys/[place] Pulse Ox Last 24 Hr 97.2 F-97.9 F 73-117 20-22 111-169/65-104 86-100 Intake & Output 08/26/18 08/27/18 08/28/18 08/29/18 23:59 23:59 23:59 23:59 Weight 104.326 kg Gen: NAD at rest Neck: no stridor HEENT: tongue not enlarged, Mallampati 4 Heart: RRR Lung: decreased breath sounds at the bases Abd: soft, nontender Ext: + edema CBC, BMP 08/29/18 05:10 08/29/18 05:10 Active Medications Chlorhexidine Gluconate (Hibiclens For Decolonization -) 1 applic TP HS JULIANNE Diphenhydramine HCl (Benadryl Injection -) 25 mg IVPB Q6H-IV JULIANNE Last Admin: 08/29/18 07:36 Dose: 25 mg Famotidine/Sodium Chloride (Pepcid 20 Mg Premixed Ivpb -) 20 mg in 50 mls @ 100 mls/hr IVPB BID JULIANNE Last Admin: 08/29/18 10:08 Dose: Not Given Dextrose/Sodium Chloride (D5-1/2ns -) 1,000 mls @ 75 mls/hr IV ASDIR JULIANNE Last Admin: 08/29/18 08:17 Dose: 75 mls/hr Mupirocin (Bactroban Ointment (For Decolonization) -) 1 applic NS BID JULIANNE Stop: 09/03/18 09:59 Prednisone (Deltasone -) 40 mg PO DAILY JULIANNE Last Admin: 08/29/18 10:31 Dose: 40 mg ASSESSMENT AND PLAN: Angioedema resolving Atrial Fibrillation CHF Asthma Morbid Obesity - continue prednisone - continue antihistamines - d/c KEE-I - list KEE-I as allergy - start PO diet - can d/c home if tolerating PO - does not require ICU monitoring at this time, please call if any change in clinical condition Thank you for this consult Case Cornelius MD
--- NOTE | 2018-08-29 11:50 | PN ---
Progress Note, Physician Chief Complaint: patient seen and examined wants to eat says his lowe lip swelling is much better now able to speak full sentences, no sob - Current Medication List Current Medications: Active Medications Chlorhexidine Gluconate (Hibiclens For Decolonization -) 1 applic TP HS JULIANNE Diphenhydramine HCl (Benadryl Injection -) 25 mg IVPB Q6H-IV JULIANNE Last Admin: 08/29/18 07:36 Dose: 25 mg Famotidine/Sodium Chloride (Pepcid 20 Mg Premixed Ivpb -) 20 mg in 50 mls @ 100 mls/hr IVPB BID JULIANNE Last Admin: 08/29/18 10:08 Dose: Not Given Dextrose/Sodium Chloride (D5-1/2ns -) 1,000 mls @ 75 mls/hr IV ASDIR [facility] Last Admin: 08/29/18 08:17 Dose: 75 mls/hr Mupirocin (Bactroban Ointment (For Decolonization) -) 1 applic NS BID JULIANNE Stop: 09/03/18 09:59 Prednisone (Deltasone -) 40 mg PO DAILY [facility] Last Admin: 08/29/18 10:31 Dose: 40 mg - Objective Vital Signs: Vital Signs Temperature 97.9 F 08/29/18 10:00 Pulse Rate 98 H 08/29/18 10:00 Respiratory Rate 20 08/29/18 10:00 Blood Pressure 166/99 08/29/18 10:00 O2 Sat by Pulse Oximetry (%) 96 08/29/18 10:00 Constitutional: Yes: Calm HENT: Yes: Other (lower lip slightly swollen) Cardiovascular: Yes: Regular Rate and Rhythm, S1, S2 Respiratory: Yes: CTA Bilaterally Gastrointestinal: Yes: Normal Bowel Sounds, Soft Edema: Yes Neurological: Yes: Alert, Oriented Labs: CBC, BMP 08/29/18 05:10 08/29/18 05:10 INR, PTT INR 1.16 (0.83-1.09) H 08/29/18 05:10 Problem List - Problems (1) Angioedema due to angiotensin converting enzyme inhibitor (EKE-I) Assessment/Plan: stop ACEI prednisone and antihistamines start diet will reasess after eating if able to eat without difficulty then dc home Code(s): T78.3XXA - ANGIONEUROTIC EDEMA, INITIAL ENCOUNTER; T46.4X5A - ADVERSE EFFECT OF [id number] INHIBITORS, INIT
--- NOTE | 2018-08-29 12:59 | PN ---
Progress Note (short form) - Note Progress Note: Subjective Seen and examined this AM with no complaints. States that his edema and speech is greatly improved since last night and is requesting to eat. Objective GEN: A&O, no acute distress HEENT: PERRL, mild facial asymmetry and left eye twitching which patient states is his baseline, Mallampati 3 NECK: Supple, no edema noted, no audible or auscultory stridor HEART: RRR, no murmurs noted LUNGS: CTA b/l ABDOMEN: Soft, nontender, obese EXTREMITIES: no peripheral edema or calf tenderness A/P 68 yo male with PMH HTN, HLD, Afib (on Eliquis), COPD, Asthma, DM admitted overnight for angioedema. Angioedema greatly improved at this point and patient requesting to eat. Pt still downstairs in the ED as no ICU beds were open overnight. Stable for downgrade from ICU vs discharge pending tolerating diet. Hold KEE/ARB Continue Prednisone Advance diet as tolerated Please reconsult if condition returns or worsens or patient condition warrants further ICU evaluation.
--- NOTE | 2018-08-29 13:55 | CON.CARD ---
Consult Consult Specialty:: cardiology Reason for Consultation:: angioedema from ?ACEI - History of Present Illness Chief Complaint: Pt A&Ox3; sitting up at bedside; asymptomatic. History of Present Illness: The patient is a 68 YOF with a PMH of asthma, nonischemic cardiomyopathy ( normal LVEF), COPD, DM, HTN, and HLD who presents with lower lip swelling since 7PM today. Patient is currently on Lotrel. Patient denies any tongue swelling or difficulty breathing. Patient has not taken any other medications at home prior to coming to the ER. Pt says that, apart from Lotrel (which contains an ACEI: benazapril) that he took yesterday, he has not taken any other medications for at least the past 2 days. - History Source History Provided By: Patient, Medical Record Limitations to Obtaining History: Poor Historian - Past Medical History Cardio/Vascular: Yes: AFIB, HTN, Hyperlipdemia Pulmonary: Yes: Asthma, COPD Endocrine: Yes: Diabetes Mellitus - Alcohol/Substance Use Hx Alcohol Use: No History of Substance Use: reports: None - Smoking History Smoking history: Former smoker Have you smoked in the past 12 months: No Aproximately how many cigarettes per day: 0 If you are a former smoker, when did you quit?: 1979 - Social History ADL: Independent History of Recent Travel: No Home Medications - Allergies Allergies/Adverse Reactions: Allergies Allergy/AdvReac Type Severity Reaction Status Date / Time KEE Inhibitors AdvReac Verified 08/29/18 11:56 - Home Medications Home Medications: Ambulatory Orders Furosemide [Lasix -] 40 mg PO DAILY 08/23/12 Simvastatin [Zocor -] 20 mg PO DAILY 08/23/12 Albuterol Sulfate [Proventil HFA Inhaler -] 1 - 2 inh PO TID #1 inhaler Brimonidine Tartrate/Timolol [Combigan 0.2%-0.5% Eye Drops] 1 drop OU TID Albuterol Sulfate 0.042% [Ventolin 0.042% (Half-Strength) -] 1 amp NEB Q6H PRN # 0 amp 02/20/17 Aspirin Coated [Ecotrin -] 81 mg PO DAILY tab 02/20/17 Budesonide/Formeterol Fumarate [SYMBICORT 160/4.5mcg -] 2 puff IH BID #1 inhaler 02/20/17 Omeprazole 20 mg PO DAILY #20 tablet. MDD 1 08/29/18 predniSONE [Deltasone -] 40 mg PO DAILY #20 tablet MDD 2 08/29/18 Vital Signs: Vital Signs Temperature 97.9 F 08/29/18 10:00 Pulse Rate 102 H 08/29/18 13:46 Respiratory Rate 22 H 08/29/18 13:46 Blood Pressure 154/96 08/29/18 13:46 O2 Sat by Pulse Oximetry (%) 96 08/29/18 13:46 - Other Data Labs, Other Data: CBC, BMP 08/29/18 05:10 08/29/18 05:10 INR, PTT INR 1.16 (0.83-1.09) H 08/29/18 05:10 Problem List - Problems (1) PAF (paroxysmal atrial fibrillation) Assessment/Plan: Restart diltiazem for HR control and apixaban for anticoagulation. ECHO for LVEF, chamber sizes, valve status. Code(s): I48.0 - PAROXYSMAL ATRIAL FIBRILLATION (2) Angioedema due to angiotensin converting enzyme inhibitor (KEE-I) Assessment/Plan: At this stage, the ACEI is considered the most likely cause of pt's angioedema, although he has apparently been taking it for the past 10 years. Will discontinue ACEI (in this case, Lotrel), and follow pt for recurrences over the past several months. Consider C4 level. Consult with it operations specialist (may need to be done as an outpatient). Code(s): T78.3XXA - ANGIONEUROTIC EDEMA, INITIAL ENCOUNTER; T46.4X5A - ADVERSE EFFECT OF [id number]-DOERFG INHIBITORS, INIT (3) COPD (chronic obstructive pulmonary disease) Code(s): J44.9 - CHRONIC OBSTRUCTIVE PULMONARY DISEASE, UNSPECIFIED (4) Nonischemic cardiomyopathy Assessment/Plan: Reportedly with normal LVEF. Will get ECHO for LVEF, chamber sizes (?HFpEF); valve status. Code(s): I42.8 - OTHER CARDIOMYOPATHIES
[2018-08-29 14:40] LABS: CHOLESTEROL 139 mg/dL (50-200); HDL CHOLESTEROL 45 mg/dL (40-60); TRIGLYCERIDES 73 mg/dL (0-150)
--- NOTE | 2018-08-29 14:57 | DS ---
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 Who presents to the ED with lower lip swelling since 1900 last night. Patient reports having tingling to his lower lip in the past, but he denies swelling. Patient reports taking Benazepril for a "long time". Patient denies dysphagia, drooling, SOB, wheezing. Patient denies fever, chills, dizziness, CP , palpitations, AP, N/V/D, constipation, dysuria. patient got prednisone benadryl, famotidine lip swelling muh improved stop ACEI add to allergy list Condition: Improved - Instructions Diet, Activity, Other Instructions: stop taking ACEI prednisone 40mg for 2 days then 30mg for 2 days then 20mg for 2 days then 10mg for 2 days then stop benadryl 25 mg twice a day for next 3 days omeprazole 20mg daily for 10 days Disposition: HOME - Home Medications Comprehensive Discharge Medication List: Ambulatory Orders Furosemide [Lasix -] 40 mg PO DAILY 08/23/12 Simvastatin [Zocor -] 20 mg PO DAILY 08/23/12 Albuterol Sulfate [Proventil HFA Inhaler -] 1 - 2 inh PO TID #1 inhaler Brimonidine Tartrate/Timolol [Combigan 0.2%-0.5% Eye Drops] 1 drop OU TID Albuterol Sulfate 0.042% [Ventolin 0.042% (Half-Strength) -] 1 amp NEB Q6H PRN # 0 amp 02/20/17 Aspirin Coated [Ecotrin -] 81 mg PO DAILY tab 02/20/17 Budesonide/Formeterol Fumarate [SYMBICORT 160/4.5mcg -] 2 puff IH BID #1 inhaler 02/20/17 Amlodipine Besylate/Benazepril [Lotrel 5-20 mg Capsule] 1 cap PO DAILY 08/29/18
[2018-08-29] MEDS: APIXABAN 5 MG TABLET PO SCH ×2 (17:03→21:24)
[2018-08-29 19:24] VITALS: BMI 39.4
[2018-08-29] MEDS: ISOSORBIDE DINITRATE 5 MG TABLET PO SCH (20:15)
[2018-08-29] MEDS: hydrALAZINE HCL 10 MG TABLET PO SCH (21:24)
[2018-08-29] MEDS ORDERED: CHLORHEXIDINE GLUCONATE 4% CLEANSER FOR DECOLONIZATION TP SCH (22:00)
[2018-08-30] MEDS: FAMOTIDINE 20 MG/50 ML IVPB 20 MG/50 ML MG IVPB SCH (10:32)
[2018-08-30] MEDS: hydrALAZINE HCL 10 MG TABLET PO SCH (10:33)
[2018-08-30] MEDS: APIXABAN 5 MG TABLET PO SCH (10:33)
[2018-08-30] MEDS: predniSONE 20 MG TABLET (UD) PO SCH (10:33)
[2018-08-30] MEDS: ISOSORBIDE DINITRATE 5 MG TABLET PO SCH ×2 (10:34→17:23)
[2018-08-30] MEDS ORDERED: PT OWN MED DRAWER 7, Y5N ONE ×2 (10:34→17:09)
--- NOTE | 2018-08-30 11:57 | EKG ---
Test Reason : Blood Pressure : / mmHG Vent. Rate : 074 BPM Atrial Rate : 074 BPM P-R Int : 160 ms QRS Dur : 104 ms QT Int : 386 ms P-R-T Axes : 063 -49 067 degrees QTc Int : 428 ms NORMAL SINUS RHYTHM LEFT ANTERIOR FASCICULAR BLOCK ABNORMAL ECG WHEN COMPARED WITH ECG OF 28-AUG-2018 23:08, CRITERIA FOR INFERIOR INFARCT ARE NO LONGER PRESENT Confirmed by CARL DIAZ, ALEJANDRO ([id number]) on 08/30/2018 11:57:27 AM Referred By: FRANCISCO WHITE Confirmed By:ALEJANDRO HENRY MD
--- NOTE | 2018-08-30 12:33 | ECHO ---
Name: AMARA WHITESIDE Exam:Adult Echocardiogram Study Date: 08/30/2018 07:57 AM Age: 68 yrs Reason For Study: CHF Height: 62 in Weight: 230 lb BSA: 2.0 m2 MMode/2D Measurements & Calculations Ao root diam: 3.2 cm LAV (MOD-bp): 64.6 ml LA dimension: 3.1 cm Doppler Measurements & Calculations MV E max derian: 75.2 cm/sec Ao V2 max: 186.0 cm/sec MV A max derian: 66.9 cm/sec Ao max P.8 mmHg MV E/A: 1.1 MV dec time: 0.15 sec LV V1 max P.4 mmHg MR max derian: 422.9 cm/sec LV V1 max: 136.3 cm/sec MR max P.5 mmHg PA V2 max: 116.7 cm/sec Med Peak E' Derian: 5.7 cm/sec PA max P.5 mmHg Med E/e': 13.3 Lat Peak E' Derian: 8.2 cm/sec Lat E/e': 9.2 Procedure A two-dimensional transthoracic echocardiogram with color flow and Doppler was performed. The study w as technically difficult with many images being suboptimal in quality. Left Ventricle The left ventricle is not well visualized. The left ventricular ejection fraction is normal. Regional wall motion abnormalities cannot be excluded due to limited visualization. Right Ventricle The right ventricle is not well visualized. Atria Normal left and right atrial size and function. Mitral Valve The mitral valve is not well visualized. Tricuspid Valve The tricuspid valve is not well visualized. Aortic Valve The aortic valve is normal in structure and function. No hemodynamically significant valvular aortic stenosis. No aortic regurgitation is present. Pulmonic Valve The pulmonic valve is not well visualized. Great Vessels The aortic root is normal size. Pericardium/Pleura There is no pericardial effusion. Interpretation Summary The left ventricle is not well visualized. The study was technically difficult with many images being suboptimal in quality. The left ventricular ejection fraction is normal. Regional wall motion abnormalities cannot be excluded due to limited visualization. The mitral valve is not well visualized. The tricuspid valve is not well visualized. The pulmonic valve is not well visualized. MD Melquiades Mejia 08/30/2018 12:32 PM
[2018-08-30 15:11] VITALS: TEMP 98.2
--- NOTE | 2018-08-30 15:14 | PN ---
Progress Note, Physician Chief Complaint: patient seen and examined wants to go home echo done caridology saw patient meds changed - Current Medication List Current Medications: Active Medications Apixaban (Eliquis -) 5 mg PO BID [facility] Last Admin: 08/30/18 10:33 Dose: 5 mg Diltiazem HCl (Cardizem Cd -) 240 mg PO DAILY [facility] Last Admin: 08/30/18 10:33 Dose: 240 mg Diphenhydramine HCl (Benadryl Injection -) 25 mg IVPB Q6H-IV [facility] Last Admin: 08/30/18 09:06 Dose: 25 mg Hydralazine HCl (Apresoline -) 10 mg PO BID [facility] Last Admin: 08/30/18 10:33 Dose: 10 mg Famotidine/Sodium Chloride (Pepcid 20 Mg Premixed Ivpb -) 20 mg in 50 mls @ 100 mls/hr IVPB BID [facility] Last Admin: 08/30/18 10:32 Dose: 100 mls/hr Dextrose/Sodium Chloride (D5-1/2ns -) 1,000 mls @ 75 mls/hr IV ASDIR [facility] Last Admin: 08/29/18 08:17 Dose: 75 mls/hr Isosorbide Dinitrate (Isordil -) 5 mg PO BIDISORDIL [facility] Last Admin: 08/30/18 10:34 Dose: 5 mg Prednisone (Deltasone -) 40 mg PO DAILY [facility] Last Admin: 08/30/18 10:33 Dose: 40 mg - Objective Vital Signs: Vital Signs Temperature 98.2 F 08/30/18 14:09 Pulse Rate 72 08/30/18 14:09 Respiratory Rate 22 H 08/30/18 14:09 Blood Pressure 131/68 08/30/18 14:09 O2 Sat by Pulse Oximetry (%) 96 08/29/18 21:00 Constitutional: Yes: Calm HENT: Yes: Other (lip swelling much improved) Cardiovascular: Yes: Regular Rate and Rhythm, S1, S2 Respiratory: Yes: CTA Bilaterally Gastrointestinal: Yes: Normal Bowel Sounds, Soft Neurological: Yes: Alert, Oriented Labs: CBC, BMP 08/29/18 05:10 08/29/18 05:10 INR, PTT INR 1.16 (0.83-1.09) H 08/29/18 05:10 Problem List - Problems (1) 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
[2018-08-31 16:08] VITALS: BP 140/70; PULSE 80
== END 2018-08-30 17:30 | disposition home or self-care (01) | DRG 916 ==
LOC: JER 22:02 → JERBED 08-29 02:17 → J5S 08-29 16:16
PROVIDERS: ADMIT Internal Medicine; ATTEND Family Medicine
DX: T78.3XXA Angioneurotic edema, initial encounter (principal); I42.9 Cardiomyopathy, unspecified; T46.4X5A Adverse effect of angiotensin-converting-enzyme inhibitors, initial encounter; Y92.038 Other place in apartment as the place of occurrence of the external cause; I11.0 Hypertensive heart disease with heart failure; I50.9 Heart failure, unspecified; I48.0 Paroxysmal atrial fibrillation; E66.01 Morbid (severe) obesity due to excess calories; Z68.39 Body mass index [BMI] 39.0-39.9, adult; E11.9 Type 2 diabetes mellitus without complications; J44.9 Chronic obstructive pulmonary disease, unspecified; E78.5 Hyperlipidemia, unspecified; Z87.891 Personal history of nicotine dependence; Z79.01 Long term (current) use of anticoagulants; I87.2 Venous insufficiency (chronic) (peripheral); E05.90 Thyrotoxicosis, unspecified without thyrotoxic crisis or storm; D72.829 Elevated white blood cell count, unspecified
CPT/HCPCS: 36415; 71045-TC-FY; 80048; 80053; 80061; 80162; 82962; 83721; 83735; 84100; 84439; 84443; 85025; 85027; 85610; 93005; 93010; 93306-TC; 99285-25

== ENCOUNTER 2019-12-14 17:50 | Inpatient (IN) | payer OTHER ==
[2019-12-14 17:57] VITALS: BMI 41.8
--- NOTE | 2019-12-14 17:58 | PDOC ---
Rapid Medical Evaluation Time Seen by Provider: 12/14/19 17:52 Medical Evaluation: Allergies Allergy/AdvReac Type Severity Reaction Status Date / Time KEE Inhibitors AdvReac Verified 08/29/18 11:56 12/14/19 17:54 69 year old male asthma, CHF, HTN, HLD presenting with LUE swelling without pain, no trauma ROS negative PE: LUE: 2+ radial pulse, swelling to the dorsum of the hand, nonttp FROM 09/29 strength Plan: Imaging deferred to provider Labs Pt to precede to ED for further treatment and care
--- NOTE | 2019-12-14 18:18 | PDOC ---
History of Present Illness - General Chief Complaint: Edema Stated Complaint: SWOLLEN LEFT ARM Time Seen by Provider: 12/14/19 17:52 - History of Present Illness Initial Comments: 69 YOM PMH asthma, CHF, HTN, presents with left arm swelling. Patient reports that 3 days prior to arrival he woke up in the AM and noticed that his left arm was swollen. The swelling persisted for the following 3 days until he decided to present to the ED for evaluation. He also reports some pain and warmth in his left arm. He denies CP, SOB, N/V/D, fever or chills. Constitutional: No Weight Change, No Fever, No Chills, No Night Sweats, No Fa tigue, No Malaise ENT/Mouth: No Hearing Changes, No Ear Pain, No Nasal Congestion, No Sinus Pain, No Hoarseness, No sore throat, No Rhinorrhea, No Swallowing Difficulty Eyes: No Eye Pain, No Swelling, No Redness, No Foreign Body, No Discharge, No Vision Changes Cardiovascular: No Chest Pain, No SOB, No PND, No Dyspnea on Exertion, No Orthopnea, No Claudication, No Edema, No Palpitations Respiratory: No Cough, No Sputum, No Wheezing, No Smoke Exposure, No Dyspnea Gastrointestinal: No Nausea, No Vomiting, No Diarrhea, No Constipation, No Pain, No Heartburn, No Anorexia, No Dysphagia, No Hematochezia, No Melena, No Flatulence, No Jaundice Genitourinary: No Dysmenorrhea, No DUB, No Dyspareunia, No Dysuria, No Urinary Frequency, No Hematuria, No Urinary Incontinence, No Urgency, No Flank Pain, No Urinary Flow Changes, No Hesitancy Musculoskeletal: Pain in left arm + swelling, No Arthralgias, No Myalgias, No Joint Swelling, No Joint Stiffness, No Back Pain, No Neck Pain, No Injury His tory Skin: No Skin Lesions, No Pruritis, No Hair Changes, No Breast/Skin Changes, No Nipple Discharge Neuro: No Weakness, No Numbness, No Paresthesias, No Loss of Consciousness, No Syncope, No Dizziness, No Headache, No Coordination Changes, No Recent Falls Psych: No Anxiety/Panic, No Depression, No Insomnia, No Personality Changes, No Delusions, No Rumination, No SI/HI/AH/VH, No Social Issues, No Memory Changes, No Violence/Abuse Hx., No Eating Concerns Heme/Lymph: No Bruising, No Bleeding, No Transfusions History, No Lymphadenopathy Endocrine: No Polyuria, No Polydipsia, No Temperature Intolerance 12/14/19 22:35 Past History - Medical History Allergies/Adverse Reactions: Allergies Allergy/AdvReac Type Severity Reaction Status Date / Time KEE Inhibitors AdvReac Verified 12/14/19 17:57 Home Medications: Ambulatory Orders Furosemide [Lasix -] 40 mg PO DAILY 08/23/12 Simvastatin [Zocor -] 20 mg PO DAILY 08/23/12 Albuterol Sulfate [Proventil HFA Inhaler -] 1 - 2 inh PO TID #1 inhaler 09/08/13 Brimonidine Tartrate/Timolol [Combigan 0.2%-0.5% Eye Drops] 1 drop OU TID Albuterol Sulfate 0.042% [Ventolin 0.042% (Half-Strength) -] 1 amp NEB Q6H PRN #0 amp 02/20/17 Budesonide/Formeterol Fumarate [SYMBICORT 160/4.5mcg -] 2 puff IH BID #1 inhaler 02/20/17 Omeprazole 20 mg PO DAILY #20 tablet. MDD 1 08/29/18 predniSONE [Deltasone -] 40 mg PO DAILY #20 tablet MDD 2 08/29/18 Apixaban [Eliquis -] 5 mg PO BID #30 tablet MDD 2 08/30/18 Diltiazem Cd [Cardizem Cd -] 240 mg PO DAILY #30 cap.cd.24h MDD 1 08/30/18 Isosorbide Dinitrate [Isordil] 5 mg PO BIDISORDIL #30 tablet MDD 2 08/30/18 hydrALAZINE HCL [Apresoline -] 10 mg PO BID #30 tablet MDD 2 08/30/18 Asthma: Yes Cancer: No Cardiac Disorders: Yes (CHF) COPD: Yes DVT: No Diabetes: Yes HTN: Yes Hypercholesterolemia: Yes - Immunization History Immunization Up to Date: Yes - Psycho-Social/Smoking History Smoking Status: No Smoking History: Former smoker Have you smoked in the past 12 months: No Number of Cigarettes Smoked Daily: 0 If you are a former smoker, when did you quit?: 15 yrs Information on smoking cessation initiated: No - Substance Abuse Hx (Audit-C & DAST Scrn) How often the patient has a drink containing alcohol: Never Score: In Men: 4 or > Positive; In Women: 3 or > Positive: 0 Screen Result (Pos requires Nsg. Audit-10AR): Negative *Physical Exam - Vital Signs Last Vital Signs Temp Pulse Resp BP Pulse Ox 97.5 F L 93 H 18 175/88 H 92 L 12/14/19 17:53 12/14/19 17:53 12/14/19 17:53 12/14/19 17:53 12/14/19 17:53 - Physical Exam General Appearance: Yes: Nourished, Appropriately Dressed HEENT: positive: EOMI, ISAURO, Normal ENT Inspection Neck: positive: Trachea midline, Normal Thyroid Respiratory/Chest: positive: Respiratory Distress, Wheezing Cardiovascular: positive: Regular Rhythm, Regular Rate, S1, S2, Edema Gastrointestinal/Abdominal: positive: Normal Bowel Sounds, Flat, Soft Musculoskeletal: positive: Other (Patients left arm is diffusely swollen below the elbow, his skin tone in the swollen region is darker than the skin tone in the rest of his body, tenderness to palpation in forearm. 1+ pitting edema in legs bilaterally.) Extremity: positive: Swelling (legs bilaterally) ED Treatment Course - LABORATORY CBC & Chemistry Diagram: 12/14/19 19:15 12/14/19 19:15 Medical Decision Making - Medical Decision Making 69 YOM PMH asthma, CHF, HTN, presents with left arm swelling. Patient reports that 3 days prior to arrival he woke up in the AM and noticed that his left arm was swollen. The swelling persisted for the following 3 days until he decided to present to the ED for evaluation. He also reports some pain and warmth in his left arm. He denies CP, SOB, N/V/D, fever or chills. Patients was tachy to low 100s, SP02 85-90, hypertensive to 170s. Physical exam remarkable for bilateral wheeze, swelling and discoloration of left arm below elbow and bilateral leg swelling. ddx: cellulitits, DVT, lymphedma, acute asthma exacerbation, CHF exacerbation. plan: CBC, CMP, BNP, Cardiac profile, CXR, Duplex US of left extremity. Duonebs, O2 by nasal canula, IV abx. reassess: labs and imaging wnl. patient is persistently hypoxic w/o supplemental O2 and does not have access to O2 at home. Will admit for management of cellulitis. dispo: admit for cellulitis Discharge - Discharge Information Problems reviewed: Yes Clinical Impression/Diagnosis: Cellulitis Qualifiers: Site of cellulitis of extremity: upper extremity Laterality: left Qualified Code(s): L03.114 - Cellulitis of left upper limb - Admission Yes - Follow up/Referral Referrals: Mariana Smith [Primary Care Provider] - - Patient Discharge Instructions - Post Discharge Activity
[2019-12-14] MEDS ORDERED: NITROGLYCERIN SUBLINGUAL 1/150 0.4 MG TAB SL ONE (18:33)
[2019-12-14] MEDS ORDERED: ALBUTEROL SO4 2.5/IPRATROPIUM 0.5 INH SOL 3 ML VIAL.NEB. NEB ONE (19:22)
[2019-12-14 19:30] LABS: BASO % 0.2 % (0-2.0); EOS % 1.9 % (0-4.5); HEMATOCRIT 47.4 % (35.4-49); HEMOGLOBIN 15.5 GM/dL (11.7-16.9); LYMPH % 29.6 % (8-40); MCH 29.1 pg (25.7-33.7); MCHC 32.7 g/dl (32.0-35.9); MEAN PLT VOLUME 8.8 fl (7.5-11.1); MONO % 10.1 % (3.8-10.2); NEUT % 58.2 % (42.8-82.8); PLATELET COUNT 198 K/MM3 (134-434); RBC 5.32 M/mm3 (4.00-5.60); RDW 15.9 % (11.9-15.9); WHITE BLOOD COUNT 8.1 K/mm3 (4.0-10.0)
[2019-12-14] MEDS: ALBUTEROL SO4 2.5/IPRATROPIUM 0.5 INH SOL 3 ML VIAL.NEB. NEB SCH ×4 (19:30→20:12)
[2019-12-14 19:34] LABS: VENOUS BASE EXCESS 4.4 mmol/L (-2-2); VENOUS O2 SATURATION 67.2 % (70-80); VENOUS PCO2 67.1 mmHg (38-52); VENOUS PH 7.312 (7.310-7.410)
[2019-12-14 19:56] LABS: ALBUMIN 3.3 g/dl (3.4-5.0); BILIRUBIN,TOTAL 0.3 mg/dL (0.2-1); BLOOD UREA NITROGEN 14.3 mg/dL (7-18); CALCIUM 9.3 mg/dL (8.5-10.1); N-TERMINAL BNP 28.3 pg/ml (5-125); POTASSIUM 3.9 mmol/L (3.5-5.1); TOT PROT 7.9 g/dl (6.4-8.2)
--- NOTE | 2019-12-14 20:23 | PDOC ---
Documentation entered by Sobeida Batron SCRIBE, acting as scribe for Anthony Vila MD. Anthony Vila MD: This documentation has been prepared by the Oralia hernandez Nirvannie, SCRIBE, under my direction and personally reviewed by me in its entirety. I confirm that the documentation accurately reflects all work, treatment, procedures, and medical decision making performed by me. Attending Attestation - Resident Resident Name: BrendaGrady - ED Attending Attestation I have performed the following: I have examined & evaluated the patient, The case was reviewed & discussed with the resident, I agree w/resident's findings & plan, Exceptions are as noted - HPI HPI: 12/14/19 19:42 The patient is a 69 year old male with a significant past medical history of COPD/asthma, CHF, HTN, HLD who presents to the ED with 3 days of left upper extremity edema. He denies any recent trauma to the extremity. He denies any recent long distance travel. Denies pain. Denies F/C. Denies CP/SOB. Allergies: KEE Inhibitors Primary Care Physician: Dr. Smith - Physicial Exam PE: 12/14/19 20:25 "GENERAL: Awake, alert, and fully oriented, in no acute distress. HEAD: No signs of trauma EYES: PERRLA, EOMI, sclera anicteric, conjunctiva clear ENT: Auricles normal inspection, hearing grossly normal, nares patent, oropharynx clear without exudates. Moist mucosa NECK: Nontender, no stepoffs, Normal ROM, supple, no lymphadenopathy, JVD, or masses LUNGS: Breath sounds equal, clear to auscultation bilaterally. No wheezes, and no crackles HEART: Regular rate and rhythm, normal S1 and S2, no murmurs, rubs or gallops ABDOMEN: Soft, nontender, normoactive bowel sounds. No guarding, no rebound. No masses EXTREMITIES: + LUE with 2+ PE NEUROLOGICAL: Cranial nerves II through XII intact. 5/5 strength and sensation in all extremities, Normal speech, normal gait, normal cerebellar function SKIN: Warm, Dry, normal turgor, no rashes or lesions noted. - Medical Decision Making 12/14/19 20:26 69 M with isolated edema of LUE. Will evaluate for DVT. Also consider volume overload, though RUE does not have any edema. ? cellulitis. - Labs, BNP - CXR - doppler Discharge - Discharge Information Problems reviewed: Yes Clinical Impression/Diagnosis: Cellulitis Qualifiers: Site of cellulitis of extremity: upper extremity Laterality: left Qualified Code(s): L03.114 - Cellulitis of left upper limb Condition: Stable Disposition: HOME - Follow up/Referral - Patient Discharge Instructions - Post Discharge Activity
--- NOTE | 2019-12-14 21:31 | PN ---
Teaching Attending Note Name of Resident: Kamaljit Gomez ATTENDING PHYSICIAN STATEMENT I saw and evaluated the patient. I reviewed the resident's note and discussed the case with the resident. I agree with the resident's findings and plan as documented. SUBJECTIVE: Patient is a 69 year old man with a PMH of COPD (supposed to be on home O2 but not using it), Afib (says Eliquis was stopped months ago by his Sand Plant Attendant), ACEI allergy, Cataract surgery, Nonischemic cardiomyopathy, ?HFpEF, HTN, NIDDM (?diet controlled) and HLD who presents to the ER with 3 days of left upper extremity edema. He denies any recent trauma to the extremity. He denies any recent long distance travel or pain. Patient denies chest pain, shortness of breath, abdominal pain, headache, palpitations, dizziness, fever, chills, nausea, vomiting, diarrhea, constipation, dysuria, frequency, urgency, melena, hematochezia or hematuria. Reports recent normal colonoscopy. Former smoker. Denies alcohol, tobacco or illicit drug use. No sick contacts or recent travels. Worked in a [employer]. Family history - father from stomach cancer. OBJECTIVE: Alert Vital Signs Period Temp Pulse Resp BP Sys/Sexton Pulse Ox Last 24 Hr 97.5 F 92-93 18-18 163-175/88-94 92-100 HEENT: No Jaundice, eye redness or discharge, PERRLA, EOMI. Normocephalic, atraumatic. External ears are normal and hearing is grossly intact. No nasal discharge. Neck: Supple, nontender. No palpable adenopathy or thyromegaly. No JVD Chest: Good effort. Diminished breath sounds. Clear to percussion. Heart: Regular. No S3, rub or murmur Abdomen: Not distended, soft, nontender and no HSM. No rebound or guarding. Normal bowel sounds. Ext: Peripheral pulses intact. LUE edema most marked in dorsum of hand; no erythema, warmth or tenderness. No leg edema. Skin: Warm and dry. No petechiae, rash or ecchymosis. Neuro: Alert. Oriented x3. CN 2-12 grossly intact. Sensation grossly intact in all four extremities and DTR are symmetric. Psych: Appropriate mood and affect. Good insight. Home Medications Medication Instructions Recorded Furosemide [Lasix -] 40 mg PO DAILY 08/23/12 Simvastatin [Zocor -] 20 mg PO DAILY 08/23/12 Albuterol Sulfate [Proventil HFA 1 - 2 inh PO TID #1 inhaler 09/08/13 Inhaler -] Brimonidine Tartrate/Timolol 1 drop OU TID 02/18/17 [Combigan 0.2%-0.5% Eye Drops] Albuterol Sulfate 0.042% [Ventolin 1 amp NEB Q6H PRN #0 amp 02/20/17 0.042% (Half-Strength) -] Budesonide/Formeterol Fumarate 2 puff IH BID #1 inhaler 02/20/17 [SYMBICORT 160/4.5mcg -] Omeprazole 20 mg PO DAILY #20 tablet. MDD 1 08/29/18 predniSONE [Deltasone -] 40 mg PO DAILY #20 tablet MDD 2 08/29/18 Apixaban [Eliquis -] 5 mg PO BID #30 tablet MDD 2 08/30/18 Diltiazem Cd [Cardizem Cd -] 240 mg PO DAILY #30 cap.cd.24h MDD 08/30/18 1 Isosorbide Dinitrate [Isordil] 5 mg PO BIDISORDIL #30 tablet MDD 2 08/30/18 hydrALAZINE HCL [Apresoline -] 10 mg PO BID #30 tablet MDD 2 08/30/18 Abnormal Lab Results 12/14/19 12/14/19 19:15 19:15 POC VBG pCO2 67.1 H VBG HCO3 33.2 H VBG O2 Sat (Georgina) 67.2 L VBG Base Excess 4.4 H Carbon Dioxide 35 H Anion Gap 7 L Random Glucose 122 H Albumin 3.3 L Current Medications Generic Name Dose Route Start Last Admin Trade Name Freq PRN Reason Stop Dose Admin Albuterol/Ipratropium 1 amp 12/14/19 23:19 Duoneb - NEB Q8H PRN WHEEZING Enoxaparin Sodium 40 mg 12/15/19 10:00 Lovenox - SQ BID JULIANNE Insulin Aspart 1 vial 12/15/19 07:00 Novolog Vial Sliding Scale - SQ ACHS JULIANNE Protocol ASSESSMENT AND PLAN: 1. LUE swelling - Etiology unclear. Duplex scan does not show any DVT or arterial occlusion. CXR shows cardiomegaly and bibasilar atelectasis (R>L). O2 saturation was 86% on arrival but improved with nasal cannula oxygen. Will check uric acid level, get a chest CTA and elevate LUE with a sling. Viral testing for COVID-19 ordered and patient placed on airborne, droplet and contact isolation. EKG shows NSR at 92/minute, LAFB and QTc [address]-T wave changes. Initial troponin is negative. Will continue comprehensive care for all of patients comorbid conditions including Duoneb PRN for COPD. Consult his Sand Plant Attendant to find out why Eliquis for Afib was stopped - his [id number] score is 4. 2. Hypoalbuminemia - Possibly due to combined effects of malnutrition and inflammation associated with comorbid conditions. Will ensure adequate dietary protein intake and also consult sewing inspector. Urinalysis pending. 3. DM (?Diet controlled) For now, we will check HbA1c, hold any diabetes drugs and implement sliding scale insulin regimen. Provide comprehensive diabetes care with patient teaching and counseling about the importance of adherence to prescribed diabetes regimen, euglycemia, eye care and foot care. 4. Morbid obesity Counseled on the risks associated with obesity. Will provide patient all the necessary assistance, counseling and positive reinforcement to facilitate weight loss. Consult sewing inspector. 5. Uncontrolled hypertension Will restart suitable outpatient antihypertensive drugs when clinically appropriate. Subsequently, will revise regimen to ensure [id number] excellent BP control. Patient counseled on the injurious effects of uncontrolled hypertension. Nonpharmacologic measures to control hypertension like weight loss, salt restriction and exercise stressed. Importance of adherence to treatment regimen and attainment of normotension emphasized. 6. DVT prophylaxis - Lovenox 40 mg SQ q 12 hours. 7. Advance directives - Full code
[2019-12-14] MEDS ORDERED: ALBUTEROL SO4 2.5/IPRATROPIUM 0.5 INH SOL 3 ML VIAL.NEB. NEB PRN (23:19)
--- NOTE | 2019-12-14 23:39 | HP ---
CHIEF COMPLAINT: PCP: Dr. Smith HISTORY OF PRESENT ILLNESS: Pt is a 69 year old male with PMHx of asthma, COPD, HTN, CHF, HLD, Afib, DM and morbid obesity presenting with LUE edema extending from below his elbow to the dorsum of his hand that began on Sunday. Pt states he noticed the swelling in the mid afternoon when going for a shower. States the dorsum of the hand has increased in swelling, but the arm from below the elbow to the wrist has decreased. Denies taking any OTC meds or creams. Denies any fever, chills, pain, decreased ROM, erythema. Pt denies any trauma or recent travel. Pt had SpO2 of 85% per ED signout, which was improved to 98% on 2LNC. Pt states he is on 2L NC at home but has been unable to obtain prescription from his PCP for home O2. Denies any symptoms of SOB, GONZALEZ. Pt states he "does not move around at home much" so is unsure how far he can walk before becoming SOB. Pt notes improvement upon his inhaler use, unsure of which. Pt has Hx of AFib, was on Eliquis but he states "it was stopped by his social work msw" but is unsure why. Admits to L arm edema, without erythema or pain. Denies F/C, CP, SOB, GONZALEZ, N/V, D/C. Recent Travel: Denies PAST MEDICAL HISTORY: As stated in HPI PAST SURGICAL HISTORY: Cataracts Social History: Smoking: Former smoker (Quit >15 years ago) Alcohol: Denies Drugs: Denies Allergies KEE Inhibitors Adverse Reaction (Verified 12/14/19 17:57) - Angioedema HOME MEDICATIONS: Home Medications Medication Instructions Recorded Furosemide [Lasix -] 40 mg PO DAILY 08/23/12 Simvastatin [Zocor -] 20 mg PO DAILY 08/23/12 Albuterol Sulfate [Proventil HFA 1 - 2 inh PO TID #1 inhaler 09/08/13 Inhaler -] Brimonidine Tartrate/Timolol 1 drop OU TID 02/18/17 [Combigan 0.2%-0.5% Eye Drops] Albuterol Sulfate 0.042% [Ventolin 1 amp NEB Q6H PRN #0 amp 02/20/17 0.042% (Half-Strength) -] Budesonide/Formeterol Fumarate 2 puff IH BID #1 inhaler 02/20/17 [SYMBICORT 160/4.5mcg -] Omeprazole 20 mg PO DAILY #20 tablet.dr MDD 1 08/29/18 predniSONE [Deltasone -] 40 mg PO DAILY #20 tablet MDD 2 08/29/18 Apixaban [Eliquis -] 5 mg PO BID #30 tablet MDD 2 08/30/18 Diltiazem Cd [Cardizem Cd -] 240 mg PO DAILY #30 cap.cd.24h MDD 08/30/18 1 Isosorbide Dinitrate [Isordil] 5 mg PO BIDISORDIL #30 tablet MDD 2 08/30/18 hydrALAZINE HCL [Apresoline -] 10 mg PO BID #30 tablet MDD 2 08/30/18 REVIEW OF SYSTEMS CONSTITUTIONAL: Absent: fever, chills, diaphoresis, generalized weakness, malaise, loss of appetite, weight change HEENT: Absent: rhinorrhea, nasal congestion, throat pain, throat swelling, difficulty swallowing, mouth swelling, ear pain, eye pain, visual changes CARDIOVASCULAR: Absent: chest pain, syncope, palpitations, irregular heart rate, lightheadedness, peripheral edema RESPIRATORY: Absent: cough, shortness of breath, dyspnea with exertion, orthopnea, wheezing, stridor, hemoptysis GASTROINTESTINAL: Absent: abdominal pain, abdominal distension, nausea, vomiting, diarrhea, constipation, melena, hematochezia GENITOURINARY: Absent: dysuria, frequency, urgency, hesitancy, hematuria, flank pain, genital pain MUSCULOSKELETAL: Admits LUE edema Absent: myalgia, arthralgia, joint swelling, back pain, neck pain SKIN: Absent: rash, itching, pallor HEMATOLOGIC/IMMUNOLOGIC: Absent: easy bleeding, easy bruising, lymphadenopathy, frequent infections ENDOCRINE: Absent: unexplained weight gain, unexplained weight loss, heat intolerance, cold intolerance NEUROLOGIC: Absent: headache, focal weakness or paresthesias, dizziness, unsteady gait, seizure, mental status changes, bladder or bowel incontinence PSYCHIATRIC: Absent: anxiety, depression, suicidal or homicidal ideation, hallucinations. PHYSICAL EXAMINATION Vital Signs - 24 hr 12/14/19 12/14/19 17:53 20:10 Temperature 97.5 F L Pulse Rate 93 H Pulse Rate [ 92 H Left Radial] Respiratory 18 18 Rate Blood Pressure 175/88 H Blood Pressure 163/94 [Left Arm] O2 Sat by Pulse 92 L 100 Oximetry (%) GENERAL: Awake, alert, and fully oriented, in no acute distress. HEAD: Normal with no signs of trauma. EYES: Pupils equal, round and reactive to light, extraocular movements intact, sclera anicteric, conjunctiva clear. Pterygium in L eye. Injected red eyes chronically. EARS, NOSE, THROAT: Ears normal, nares patent, oropharynx clear without exudates. Moist mucous membranes. NECK: Normal range of motion, supple without lymphadenopathy, JVD, or masses. LUNGS: Breath sounds equal, clear to auscultation bilaterally. No wheezes, and no crackles. No accessory muscle use. HEART: Regular rate and rhythm, normal S1 and S2 without murmur, rub or gallop. ABDOMEN: Soft, nontender, not distended, normoactive bowel sounds, no guarding, no rebound, no masses. No hepatomegaly or splenomegaly. MUSCULOSKELETAL: Normal range of motion at all joints. No bony deformities or tenderness. No CVA tenderness. UPPER EXTREMITIES: 2+ pulses, warm, well-perfused. No cyanosis. No clubbing. LUE trace edema from below elbow to dorsum of hand (without erythema or pain). LOWER EXTREMITIES: 2+ pulses, warm, well-perfused. No calf tenderness. Chronic edema in B/L LE. NEUROLOGICAL: Cranial nerves II-XII intact. Normal speech. Normal gait. PSYCHIATRIC: Cooperative. Good eye contact. Appropriate mood and affect. SKIN: Warm, dry, normal turgor, no rashes or lesions noted, normal capillary refill. Laboratory Results - last 24 hr 12/14/19 12/14/19 12/14/19 19:15 19:15 19:15 WBC 8.1 RBC 5.32 Hgb 15.5 Hct 47.4 MCV 89.0 MCH 29.1 MCHC 32.7 RDW 15.9 Plt Count 198 D MPV 8.8 Absolute Neuts (auto) 4.7 Neutrophils % 58.2 Lymphocytes % 29.6 D Monocytes % 10.1 Eosinophils % 1.9 Basophils % 0.2 Nucleated RBC % 0 VBG pH 7.312 POC VBG pCO2 67.1 H POC VBG pO2 39.1 VBG HCO3 33.2 H VBG O2 Sat (Georgina) 67.2 L VBG Base Excess 4.4 H Sodium 140 Potassium 3.9 Chloride 99 Carbon Dioxide 35 H Anion Gap 7 L BUN 14.3 Creatinine 1.0 Est GFR (CKD-EPI)AfAm 88.61 Est GFR (CKD-EPI)NonAf 76.45 Random Glucose 122 H Calcium 9.3 Total Bilirubin 0.3 AST 21 ALT 23 Alkaline Phosphatase 89 Creatine Kinase 82 Troponin I 0.02 B-Natriuretic Peptide 28.3 Total Protein 7.9 Albumin 3.3 L ASSESSMENT/PLAN: Pt is a 69 year old male with PMHx of asthma, COPD, HTN, CHF, HLD, Afib, DM and morbid obesity presenting with LUE edema from below the elbow to the dorsum of the hand, without erythema, afebrile; O2 sat 85% on room air, improved to 98% on 2L NC. CXR showing cardiomegaly, CTA ordered to rule out PE. #Acute hypoxic respiratory failure -Pt 85% SpO2 on RA, improves to 98% on 2LNC -Continue on 2L NC -CTA ordered to r/o PE -On home O2 (2LNC), but hasn't been on it due to difficulties obtaining; consulted social work -Continue home inhaled bronchodilators -Duonebs PRN #HTN -Restart on home meds when med rec'd -Avoid ACEi due to hx of angioedema -Cardio consulted (Dr. Mejia) #LUE Edema -Unlikely cellulitis due to presentation (lack of erythema, afebrile) -Ice packs PRN -Uric acid level ordered #Hx of Afib -[id number] = 4 -Was previously on Eliquis; unsure why d/c -Cardio consulted (Dr. Mejia) #Hx of CHF -Chronic LE edema noted -Continue home Lasix once med rec completed #Hx of HLD -Continue home statin when med rec completed #Hx of DM -Glucose = 122 -A1c ordered -UA ordered FEN -Sodium/diabetic diet Prophylaxis -Lovenox 40mg SQ BID Dispo Pt admitted for acute hypoxic respiratory failure. Improved on 2LNC which he hasn't had access to at home (social work consulted). Pt should be on CHADSVASc = 4, but unsure why discontinued - consulted Cardio. Consults: Cardio (Dr Mejia) Social work (O2 at home) Family Medical History Family History: Unremarkable Problem List - Problem (1) Acute on chronic respiratory failure with hypoxia and hypercapnia Code(s): J96.21 - ACUTE AND CHRONIC RESPIRATORY FAILURE WITH HYPOXIA; J96.22 - ACUTE AND CHRONIC RESPIRATORY FAILURE WITH HYPERCAPNIA (2) Afib Code(s): I48.91 - UNSPECIFIED ATRIAL FIBRILLATION Qualifiers: Atrial fibrillation type: paroxysmal Qualified Code(s): I48.0 - Paroxysmal atrial fibrillation (3) Asthma Code(s): J45.909 - UNSPECIFIED ASTHMA, UNCOMPLICATED Qualifiers: Asthma severity: mild Asthma persistence: intermittent Asthma complication type: uncomplicated Qualified Code(s): J45.20 - Mild intermittent asthma, uncomplicated (4) Asthma exacerbation Code(s): J45.901 - UNSPECIFIED ASTHMA WITH (ACUTE) EXACERBATION (5) CHF (congestive heart failure) Code(s): I50.9 - HEART FAILURE, UNSPECIFIED (6) COPD (chronic obstructive pulmonary disease) Code(s): J44.9 - CHRONIC OBSTRUCTIVE PULMONARY DISEASE, UNSPECIFIED (7) COPD exacerbation Code(s): J44.1 - CHRONIC OBSTRUCTIVE PULMONARY DISEASE W (ACUTE) EXACERBATION (8) Diabetes Code(s): E11.9 - TYPE 2 DIABETES MELLITUS WITHOUT COMPLICATIONS (9) HLD (hyperlipidemia) Code(s): E78.5 - HYPERLIPIDEMIA, UNSPECIFIED (10) HTN (hypertension) Code(s): I10 - ESSENTIAL (PRIMARY) HYPERTENSION (11) Metabolic syndrome Code(s): E88.81 - METABOLIC SYNDROME (12) NAKIA (obstructive sleep apnea) Code(s): G47.33 - OBSTRUCTIVE SLEEP APNEA (ADULT) (PEDIATRIC) (13) Sepsis Code(s): A41.9 - SEPSIS, UNSPECIFIED ORGANISM (14) URI, acute Code(s): J06.9 - ACUTE UPPER RESPIRATORY INFECTION, UNSPECIFIED Visit type - Medication Review Med list reviewed for High Risk Meds patients 65 and older: No - Emergency Visit Emergency Visit: Yes ED Registration Date: 12/14/19 Care time: The patient presented to the Emergency Department on the above date and was hospitalized for further evaluation of their emergent condition. - New Patient This patient is new to me today: Yes Date on this admission: 12/14/19 - Critical Care Critical Care patient: No ATTENDING PHYSICIAN STATEMENT I saw and evaluated the patient. I reviewed the resident's note and discussed the case with the resident. I agree with the resident's findings and plan as documented. SUBJECTIVE: OBJECTIVE: ASSESSMENT AND PLAN:
[2019-12-15 00:33] LABS: URIC ACID 5.5 mg/dL (2.6-7.2)
[2019-12-15 01:14] LABS: PH,URINE 5.5 (5.0-8.0); URINE APPEARANCE CLEAR; URINE BILIRUBIN NEGATIVE (NEGATIVE); URINE COLOR YELLOW; URINE GLUCOSE (UA) NEGATIVE (NEGATIVE); URINE KETONE NEGATIVE (NEGATIVE); URINE LEUK ESTERASE NEGATIVE (NEGATIVE); URINE NITRITE NEGATIVE (NEGATIVE); URINE PROTEIN NEGATIVE (NEGATIVE)
[2019-12-15 07:52] LABS: BASO % 0.2 % (0-2.0); EOS % 1.4 % (0-4.5); HEMATOCRIT 46.8 % (35.4-49); LYMPH % 23.3 % (8-40); MCH 28.6 pg (25.7-33.7); MEAN CELL VOLUME 89.3 fl (80-96); MEAN PLT VOLUME 9.2 fl (7.5-11.1); MONO % 10.2 % (3.8-10.2); NEUT % 64.9 % (42.8-82.8); PLATELET COUNT 190 K/MM3 (134-434); RBC 5.24 M/mm3 (4.00-5.60); RDW 16.1 % (11.9-15.9); WHITE BLOOD COUNT 7.9 K/mm3 (4.0-10.0)
[2019-12-15 08:24] LABS: ALBUMIN 3.3 g/dl (3.4-5.0); BILIRUBIN,TOTAL 0.6 mg/dL (0.2-1); BLOOD UREA NITROGEN 9.7 mg/dL (7-18); CALCIUM 8.9 mg/dL (8.5-10.1); CREATININE 0.7 mg/dL (0.55-1.3); PHOSPHOROUS 4.5 mg/dL (2.5-4.9); TOT PROT 7.8 g/dl (6.4-8.2)
--- NOTE | 2019-12-15 08:55 | CON.CARD ---
Consult Consult Specialty:: Cardiology - History of Present Illness History of Present Illness: Patient is a 69 year old man with a PMH of COPD (supposed to be on home O2 but not using it), Afib, ACEI allergy, Cataract surgery,HFpEF, HTN, NIDDM (?diet controlled) and HLD who presents to the ER with 3 days of left upper extremity edema. He denies any recent trauma to the extremity. He denies any recent long distance travel or pain. Patient denies chest pain, shortness of breath, abdominal pain, headache, palpitations, dizziness, fever, chills, nausea, vomiting, diarrhea, constipation, dysuria, frequency, urgency, melena, hematochezia or hematuria. Reports recent normal colonoscopy. Former smoker. Denies alcohol, tobacco or illicit drug use. No sick contacts or recent travels. Worked in a [employer]. Family history - father from stomach cancer. PMH Major events atrial fibrillation associated with COPD exacerbation 2016 [facility] Lip swelling and angioedema, hospitalized at [facility] August 2018 --- resolved by stopping KEE inhibitors. AFIB. Risk of CVA discussed. patient should continue anti-coagulants. Ongoing medical problems asthma h/o nonischemic CMP recent EF normal hhd htn Negative c. Cath 2008 ECHO 2018 1. There is moderate concentric left ventricular hypertrophy with preserved systolic function. 2. Mitral Doppler inflow pattern suggests diastolic filling abnormality. 3. No regional wall motion abnormalities were noted. 4. The left atrium is mildly dilated. 5. There is mild aortic regurgitation. 6. Mild mitral regurgitation is present. 7. Mild tricuspid regurgitation present. 8. Right ventricular systolic pressure is normal at < 35 mmHg - History Source History Provided By: Patient, Medical Record - Past Medical History Cardio/Vascular: Yes: AFIB, HTN, Hyperlipdemia Pulmonary: Yes: Asthma, COPD Endocrine: Yes: Diabetes Mellitus - Alcohol/Substance Use Hx Alcohol Use: No History of Substance Use: reports: None - Smoking History Smoking history: Former smoker Have you smoked in the past 12 months: No Aproximately how many cigarettes per day: 0 If you are a former smoker, when did you quit?: 15 yrs - Social History ADL: Independent History of Recent Travel: No Home Medications - Allergies Allergies/Adverse Reactions: Allergies Allergy/AdvReac Type Severity Reaction Status Date / Time KEE Inhibitors AdvReac Verified 12/14/19 17:57 - Home Medications Home Medications: Ambulatory Orders Furosemide [Lasix -] 40 mg PO DAILY 08/23/12 Simvastatin [Zocor -] 20 mg PO DAILY 08/23/12 Albuterol Sulfate [Proventil HFA Inhaler -] 1 - 2 inh PO TID #1 inhaler 09/08/13 Brimonidine Tartrate/Timolol [Combigan 0.2%-0.5% Eye Drops] 1 drop OU TID 02/18/17 Albuterol Sulfate 0.042% [Ventolin 0.042% (Half-Strength) -] 1 amp NEB Q6H PRN #0 amp 02/20/17 Budesonide/Formeterol Fumarate [SYMBICORT 160/4.5mcg -] 2 puff IH BID #1 inhaler 02/20/17 Omeprazole 20 mg PO DAILY #20 tablet. MDD 1 08/29/18 predniSONE [Deltasone -] 40 mg PO DAILY #20 tablet MDD 2 08/29/18 Apixaban [Eliquis -] 5 mg PO BID #30 tablet MDD 2 08/30/18 Diltiazem Cd [Cardizem Cd -] 240 mg PO DAILY #30 cap.cd.24h MDD 1 08/30/18 Isosorbide Dinitrate [Isordil] 5 mg PO BIDISORDIL #30 tablet MDD 2 08/30/18 hydrALAZINE HCL [Apresoline -] 10 mg PO BID #30 tablet MDD 2 08/30/18 Review of Systems Findings/Remarks: l upper ext edema - Review of Systems Constitutional: reports: No Symptoms Eyes: reports: No Symptoms HENT: reports: No Symptoms Neck: reports: No Symptoms Cardiovascular: reports: No Symptoms Respiratory: reports: No Symptoms Gastrointestinal: reports: No Symptoms Genitourinary: reports: No Symptoms Breasts: reports: No Symptoms Reported Musculoskeletal: reports: No Symptoms Integumentary: reports: No Symptoms Neurological: reports: No Symptoms Endocrine: reports: No Symptoms Hematology/Lymphatic: reports: No Symptoms Psychiatric: reports: No Symptoms Vital Signs: Vital Signs Temperature 98.0 F 12/15/19 06:19 Pulse Rate 75 12/15/19 06:19 Respiratory Rate 19 12/15/19 06:19 Blood Pressure 137/85 12/15/19 06:19 O2 Sat by Pulse Oximetry (%) 100 12/15/19 06:19 Constitutional: Yes: Well Nourished, No Distress, Calm Eyes: Yes: WNL, Conjunctiva Clear, EOM Intact HENT: Yes: WNL, Atraumatic, Normocephalic Neck: Yes: WNL, Supple, Trachea Midline Respiratory: Yes: WNL, Regular, CTA Bilaterally Gastrointestinal: Yes: WNL, Normal Bowel Sounds Renal/: Yes: WNL Cardiovascular: Yes: WNL, Regular Rate and Rhythm Musculoskeletal: Yes: WNL Extremities: Yes: WNL Edema: Yes Edema: LUE: 1+ Integumentary: Yes: WNL Neurological: Yes: WNL, Alert, Oriented ...Motor Strength: WNL Psychiatric: Yes: WNL, Alert, Oriented - Other Data Labs, Other Data: CBC, BMP 12/15/19 06:30 12/15/19 06:30 Troponin, BNP 12/14/19 19:15 Troponin I 0.02 B-Natriuretic Peptide 28.3 Troponin, BNP 12/14/19 19:15 Troponin I 0.02 B-Natriuretic Peptide 28.3 Imaging - Results Chest X-ray: Image Reviewed (MARY JO simpson) EKG: Image Reviewed (sr LAL) Assessment/Plan COPD (supposed to be on home O2 but not using it), Afib - one episode in 2017 during COPD exacerbation in R since - patient self d/c Eliquis - according to my records patient should be taking Eliquis, ACEI allergy, Cataract surgery,HFpEF, HTN, NIDDM (?diet controlled) and HLD who presents to the ER with 3 days of left upper extremity edema. No evidence of CHF this admission BNP 28 Plan; Will discuss with the patient pros and cons of AC BP control DVT plx
--- NOTE | 2019-12-15 09:09 | EKG ---
Test Reason : Blood Pressure : / mmHG Vent. Rate : 092 BPM Atrial Rate : 092 BPM P-R Int : 152 ms QRS Dur : 096 ms QT Int : 372 ms P-R-T Axes : 036 -68 070 degrees QTc Int : 460 ms NORMAL SINUS RHYTHM LEFT ANTERIOR FASCICULAR BLOCK ABNORMAL ECG WHEN COMPARED WITH ECG OF 30-AUG-2018 09:10, NO SIGNIFICANT CHANGE WAS FOUND Confirmed by Julee Brooke ([id number]) on 12/15/2019 9:09:06 AM Referred By: Confirmed By:Julee Brooke
[2019-12-15] MEDS ORDERED: ENOXAPARIN NA (PORCINE) 40 MG/0.4 ML DISP.SYRIN SQ SCH (10:00)
[2019-12-15] MEDS: INSULIN SLIDING SCALE (NOVOLOG) 1 VIAL SQ SCH ×4 (11:04→22:04)
--- NOTE | 2019-12-15 12:59 | PN ---
Progress Note, Physician Chief Complaint: LUE edema Afib History of Present Illness: Seen in ER, at bedside Left arm swelling from elbow to hand started 3 days ago, denies any fever or chills. As per pt, pt had intractable epistaxis couple of months ago, came to the hospital, had nasal packing done, eliquis was stopped at that time, but was never started again. He follows up with PCP at [facility] and with Dr Mathias for Cardiology - Current Medication List Current Medications: Active Medications Albuterol/Ipratropium (Duoneb -) 1 amp NEB Q8H PRN PRN Reason: WHEEZING Enoxaparin Sodium (Lovenox -) 40 mg SQ BID JULIANNE Insulin Aspart (Novolog Vial Sliding Scale -) 1 vial SQ ACHS JULIANNE; Protocol Last Admin: 12/15/19 11:05 Dose: Not Given Documented by: - Objective Vital Signs: Vital Signs Temperature 98.0 F 12/15/19 06:19 Pulse Rate 75 12/15/19 06:19 Respiratory Rate 19 12/15/19 06:19 Blood Pressure 137/85 12/15/19 06:19 O2 Sat by Pulse Oximetry (%) 100 12/15/19 06:19 Constitutional: Yes: Well Nourished, No Distress, Calm Cardiovascular: Yes: Regular Rate and Rhythm Respiratory: Yes: Regular, CTA Bilaterally Gastrointestinal: Yes: Normal Bowel Sounds, Soft, Abdomen, Obese Genitourinary: Yes: WNL Musculoskeletal: Yes: WNL Extremities: Yes: Other (LUE swelling and warm to touch) Edema: Yes (LUE) Neurological: Yes: Alert, Oriented Psychiatric: Yes: Alert, Oriented Labs: CBC, BMP 12/15/19 06:30 12/15/19 06:30 Problem List - Problems (1) Diabetes Assessment/Plan: -diabetic low sodium diet -BGM AC HS -Recheck A1c -ISS Problems reviewed: Yes Code(s): E11.9 - TYPE 2 DIABETES MELLITUS WITHOUT COMPLICATIONS (2) Cellulitis Assessment/Plan: -ID consult -afebrile -No leukocytosis -BC pending Problems reviewed: Yes Code(s): L03.90 - CELLULITIS, UNSPECIFIED Qualifiers: Site of cellulitis of extremity: upper extremity Laterality: left Qualified Code(s): L03.114 - Cellulitis of left upper limb (3) Afib Assessment/Plan: -Restart AC -Encouraged the importance of AC and to run it by Cardiology if it ever needs to be stopped. Problems reviewed: Yes Code(s): I48.91 - UNSPECIFIED ATRIAL FIBRILLATION Qualifiers: Atrial fibrillation type: paroxysmal Qualified Code(s): I48.0 - Paroxysmal atrial fibrillation (4) COPD (chronic obstructive pulmonary disease) Assessment/Plan: -Pulmonary consult -Nasal O2 PRN to keep SpO2>90% -Pre and post ambulation SpO2 prior to discharge Problems reviewed: Yes Code(s): J44.9 - CHRONIC OBSTRUCTIVE PULMONARY DISEASE, UNSPECIFIED Assessment/Plan See problem list Plan discussed with at bedside
[2019-12-15] MEDS ORDERED: ACETAMINOPHEN 325 MG TABLET (FP) PO PRN (13:03)
[2019-12-15] MEDS ORDERED: PATIENT'S OWN MEDICATION (NON-FORMULARY) (Brimonidine Tartrate/Timolol [Combigan 0.2%-0.5% OU SCH (14:00)
--- NOTE | 2019-12-15 14:23 | CON.PULM ---
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 Admitted via the ER due to left hand and forearm edema that started on Sunday. Saturation reported to be 85% on RA and improved to 98% on 2LNC. His current home device is in the process of being changed as it has not been functioning. Baseline GONZALEZ. No specific increase in cough, sputum ,etc. His is at the bedside and she reports loud snoring and witnessed apneas. No fever or chills. No specific COVID19 exposure. CTA : No PE / no acute findings. - History Source History Provided By: Patient Limitations to Obtaining History: No Limitations - Past Medical History Cardio/Vascular: Yes: AFIB, HTN, Hyperlipdemia Pulmonary: Yes: Asthma, Bronchitis, COPD, O2 Dependent, Pneumonia. No: Cancer, Previously Intubated, Pulmonary Embolus, Pulmonary Fibrosis, Sleep Apnea Endocrine: Yes: Diabetes Mellitus - Alcohol/Substance Use Hx Alcohol Use: No History of Substance Use: reports: None - Smoking History Smoking history: Former smoker Have you smoked in the past 12 months: No Aproximately how many cigarettes per day: 0 If you are a former smoker, when did you quit?: 15 yrs - Social History ADL: Independent History of Recent Travel: No Home Medications - Allergies Allergies/Adverse Reactions: Allergies Allergy/AdvReac Type Severity Reaction Status Date / Time KEE Inhibitors AdvReac Verified 12/14/19 17:57 - Home Medications Home Medications: Ambulatory Orders Furosemide [Lasix -] 40 mg PO DAILY 08/23/12 Simvastatin [Zocor -] 20 mg PO DAILY 08/23/12 Albuterol Sulfate [Proventil HFA Inhaler -] 1 - 2 inh PO TID #1 inhaler 09/08/13 Brimonidine Tartrate/Timolol [Combigan 0.2%-0.5% Eye Drops] 1 drop OU TID 02/18/17 Albuterol Sulfate 0.042% [Ventolin 0.042% (Half-Strength) -] 1 amp NEB Q6H PRN #0 amp 02/20/17 Budesonide/Formeterol Fumarate [SYMBICORT 160/4.5mcg -] 2 puff IH BID #1 inhaler 02/20/17 Omeprazole 20 mg PO DAILY #20 tablet. MDD 1 08/29/18 predniSONE [Deltasone -] 40 mg PO DAILY #20 tablet MDD 2 08/29/18 Apixaban [Eliquis -] 5 mg PO BID #30 tablet MDD 2 08/30/18 Diltiazem Cd [Cardizem Cd -] 240 mg PO DAILY #30 cap.cd.24h MDD 1 08/30/18 Isosorbide Dinitrate [Isordil] 5 mg PO BIDISORDIL #30 tablet MDD 2 08/30/18 hydrALAZINE HCL [Apresoline -] 10 mg PO BID #30 tablet MDD 2 08/30/18 Review of Systems - Review of Systems Constitutional: denies: Chills, Fever, Malaise, Night Sweats, Unintentional Wgt. Loss Eyes: reports: No Symptoms HENT: reports: No Symptoms Neck: reports: No Symptoms Cardiovascular: reports: Shortness of Breath. denies: Chest Pain, Edema, Palpitations Respiratory: reports: Cough, Snoring, SOB on Exertion. denies: Orthopnea, PND, SOB, Wheezing Gastrointestinal: reports: No Symptoms Genitourinary: reports: No Symptoms Breasts: reports: No Symptoms Reported Musculoskeletal: reports: Decreased ROM, Extremity Pain, Joint Swelling, Muscle Cramps. denies: Joint Pain, Muscle Weakness Integumentary: reports: Change in Color, Erythema Neurological: reports: No Symptoms Endocrine: reports: No Symptoms Hematology/Lymphatic: reports: No Symptoms Psychiatric: reports: No Symptoms Physical Exam Vital Sings: Vital Signs Temperature 98.0 F 12/15/19 06:19 Pulse Rate 75 12/15/19 06:19 Respiratory Rate 19 12/15/19 06:19 Blood Pressure 137/85 12/15/19 06:19 O2 Sat by Pulse Oximetry (%) 100 12/15/19 06:19 Constitutional: Yes: No Distress, Calm, Obese Eyes: Yes: Conjunctiva Clear, EOM Intact HENT: Yes: Atraumatic, Normocephalic Neck: Yes: Supple, Trachea Midline Cardiovascular: Yes: Regular Rate and Rhythm Respiratory: Yes: Cough, Diminished, On Nasal O2, SOB on Exertion. No: Accessory Muscle Use, Rales, Rhonchi, SOB, Stridor, Tachypnea, Wheezes ...Inspection: Yes: WNL ...Clubbing: No Gastrointestinal: Yes: Normal Bowel Sounds, Soft, Abdomen, Obese Renal/: Yes: WNL Musculoskeletal: Yes: WNL Extremities: Yes: Erythema Edema: Yes Peripheral Pulses WNL: Yes Integumentary: Yes: WNL Neurological: Yes: WNL, Alert, Oriented ...Motor Strength: WNL Psychiatric: Yes: WNL, Alert, Oriented Labs: CBC, BMP 12/15/19 06:30 12/15/19 06:30 Imaging - Results Chest X-ray: Report Reviewed, Image Reviewed Cat Scan: Report Reviewed, Image Reviewed Problem List - Problems (1) Cellulitis Code(s): L03.90 - CELLULITIS, UNSPECIFIED Qualifiers: Site of cellulitis of extremity: upper extremity Laterality: left Qualified Code(s): L03.114 - Cellulitis of left upper limb (2) Afib Code(s): I48.91 - UNSPECIFIED ATRIAL FIBRILLATION Qualifiers: Atrial fibrillation type: paroxysmal Qualified Code(s): I48.0 - Paroxysmal atrial fibrillation (3) Asthma Code(s): J45.909 - UNSPECIFIED ASTHMA, UNCOMPLICATED Qualifiers: Asthma severity: mild Asthma persistence: intermittent Asthma complication type: uncomplicated Qualified Code(s): J45.20 - Mild intermittent asthma, uncomplicated (4) CHF (congestive heart failure) Code(s): I50.9 - HEART FAILURE, UNSPECIFIED (5) COPD (chronic obstructive pulmonary disease) Code(s): J44.9 - CHRONIC OBSTRUCTIVE PULMONARY DISEASE, UNSPECIFIED (6) Chronic venous insufficiency Code(s): I87.2 - VENOUS INSUFFICIENCY (CHRONIC) (PERIPHERAL) (7) HLD (hyperlipidemia) Code(s): E78.5 - HYPERLIPIDEMIA, UNSPECIFIED (8) HTN (hypertension) Code(s): I10 - ESSENTIAL (PRIMARY) HYPERTENSION (9) Metabolic syndrome Code(s): E88.81 - METABOLIC SYNDROME (10) Nonischemic cardiomyopathy Code(s): I42.8 - OTHER CARDIOMYOPATHIES (11) PAF (paroxysmal atrial fibrillation) Code(s): I48.0 - PAROXYSMAL ATRIAL FIBRILLATION Assessment/Plan [facility] will need to be contcted to arrange for new home equipment Supplemental O2 as needed Albuterol PRN No indication for systemic steroids No smoking Will need outpatient PFTs Sleep testing Will follow Thank you. Dr Wesley NAKIA Screen - NAKIA History Previously diagnosed with Sleep Apnea: No If Yes, currently using CPAP to treat your NAKIA: No - SNORING Do you snore loudly (enough to be heard thru closed doors)?: Yes - TIRED Do you often feel tired, fatigued, or sleepy during daytime?: Yes - OBSERVED Has anyone observed you stop breathing during your sleep?: Yes - BLOOD PRESSURE Do you have or are being treated for high blood pressure?: Yes - BMI Answer Y if weight exceeds amount listed for your height: Yes .: HEIGHT & WEIGHT (lbs): 4'10" 167lbs; 4'11" 175 lbs; 5'0" 179lbs;. 5'1" 185lbs; 5'2" 191lbs; 5'3" 197lbs;. 5'4" 204lbs; 5'5" 210lbs; 5'6" 216lbs;. 5'7" 223lbs; 5'8" 230lbs; 5'9" 237lbs;. 5'10" 243lbs; 5'11" 250lbs; 6' 258lbs;. 6'1" 265lbs; 6'2" 272lbs; 6'3" 279lbs;. 6'4" 287lbs; 6'5" 295lbs - AGE Is your age over 50 yrs old?: Yes - NECK CIRCUMFERENCE Neck Circumference 40cm: Yes - GENDER Male: Yes - SCORE Total Score: 8 Score Interpretation: High Risk of NAKIA .: Interpretation: Score 0-2: Low Risk NAKIA. Score 3-4: Intermediate Risk NAKIA. Score 5-8: High Risk NAKIA
--- NOTE | 2019-12-15 15:46 | PN ---
Progress Note (short form) - Note Progress Note: ID consult dictated impl/reccd 69 yo man admitted from home with left arm swelling for three days no trauma, no insect bites no fevers, or chills duplex is negative left forearm is warm, FROM of left elbow and wrist uric acid is normal forearm cellulitis/hand swelling blood cultures ancef COPD-home oxygen OSAS- per pulmonary Problem List - Problems (1) Cellulitis Code(s): L03.90 - CELLULITIS, UNSPECIFIED Qualifiers: Site of cellulitis of extremity: upper extremity Laterality: left Qualified Code(s): L03.114 - Cellulitis of left upper limb (2) COPD (chronic obstructive pulmonary disease) Code(s): J44.9 - CHRONIC OBSTRUCTIVE PULMONARY DISEASE, UNSPECIFIED (3) NAKIA (obstructive sleep apnea) Code(s): G47.33 - OBSTRUCTIVE SLEEP APNEA (ADULT) (PEDIATRIC)
[2019-12-15] MEDS: predniSONE 20 MG TABLET (UD) PO SCH (17:21)
[2019-12-15] MEDS: BUDESONIDE/FORMETEROL FUMARATE 160/4.5 mcg INHALER IH SCH ×2 (17:21→22:04)
[2019-12-15] MEDS: hydrALAZINE HCL 10 MG TABLET PO SCH ×2 (17:22→22:48)
[2019-12-15] MEDS: FAMOTIDINE 20 MG TABLET PO SCH (17:22)
[2019-12-15] MEDS: TIMOLOL 0.5% OPHTHALMIC SOL 5 ML BOTTLE OU SCH ×2 (17:23→22:04)
[2019-12-15] MEDS: BRIMONIDINE TARTRATE 0.2% OPHTHALMIC 5 ML BOTTLE OU SCH ×2 (17:24→22:04)
[2019-12-15] MEDS: FUROSEMIDE 40 MG TABLET (FP) PO SCH (17:27)
[2019-12-15] MEDS ORDERED: CEFAZOLIN 1 GM/D5W 1 GM/50 ML BAG IVPB SCH (18:00)
[2019-12-15] MEDS: CEFAZOLIN 1 GM in DEXTROSE 5%-WATER - 50 ML IVPB SCH (18:36)
[2019-12-15] MEDS: ISOSORBIDE DINITRATE 5 MG TABLET PO SCH (18:36)
--- NOTE | 2019-12-15 19:28 | PN ---
Progress Note, Physician History of Present Illness: Patient is a 69 year old man with a PMH of COPD (supposed to be on home O2 but not using it), Afib, ACEI allergy, Cataract surgery,HFpEF, HTN, NIDDM (?diet controlled) and HLD who presents to the ER with 3 days of left upper extremity edema. He denies any recent trauma to the extremity. He denies any recent long distance travel or pain. Patient denies chest pain, shortness of breath, abdominal pain, headache, palpitations, dizziness, fever, chills, nausea, vomiti ng, diarrhea, constipation, dysuria, frequency, urgency, melena, hematochezia or hematuria. Reports recent normal colonoscopy. Former smoker. Denies alcohol, tobacco or illicit drug use. No sick contacts or recent travels. Worked in a [employer]. Family history - father from stomach cancer. PMH Major events atrial fibrillation associated with COPD exacerbation 2016 [facility] Lip swelling and angioedema, hospitalized at [facility] August 2018 --- resolved by s topping KEE inhibitors. AFIB. Risk of CVA discussed. patient should continue anti-coagulants. Ongoing medical problems asthma h/o nonischemic CMP recent EF normal hhd htn Negative c. Cath 2008 ECHO 2018 1. There is moderate concentric left ventricular hypertrophy with preserved systolic function. 2. Mitral Doppler inflow pattern suggests diastolic filling abnormality. 3. No regional wall motion abnormalities were noted. 4. The left atrium is mildly dilated. 5. There is mild aortic regurgitation. 6. Mild mitral regurgitation is present. 7. Mild tricuspid regurgitation present. 8. Right ventricular systolic pressure is normal at < 35 mmHg - Current Medication List Current Medications: Active Medications Acetaminophen (Tylenol -) 650 mg PO Q4H PRN PRN Reason: PAIN Albuterol/Ipratropium (Duoneb -) 1 amp NEB Q8H PRN PRN Reason: WHEEZING Apixaban (Eliquis -) 5 mg PO BID [facility] Atorvastatin Calcium (Lipitor -) 20 mg PO HS [facility] Brimonidine Tartrate (Alphagan 0.2% -) 1 drop OU TID [facility] Last Admin: 12/15/19 17:24 Dose: 1 drop Documented by: Budesonide/Formoterol Fumarate (Symbicort 160/4.5mcg -) 2 puff IH BID [facility] Last Admin: 12/15/19 17:21 Dose: 2 puff Documented by: Diltiazem HCl (Cardizem Cd -) 240 mg PO DAILY [facility] Last Admin: 12/15/19 17:23 Dose: 240 mg Documented by: Famotidine (Pepcid -) 20 mg PO DAILY [facility] Last Admin: 12/15/19 17:22 Dose: 20 mg Documented by: Furosemide (Lasix -) 40 mg PO DAILY [facility] Last Admin: 12/15/19 17:27 Dose: 40 mg Documented by: Hydralazine HCl (Apresoline -) 10 mg PO BID [facility] Last Admin: 12/15/19 17:22 Dose: 10 mg Documented by: Cefazolin Sodium 1 gm/ (Dextrose) 50 mls @ 100 mls/hr IVPB Q8H-IV [facility] Last Admin: 12/15/19 18:36 Dose: 100 mls/hr Documented by: Insulin Aspart (Novolog Vial Sliding Scale -) 1 vial SQ ACHS [facility]; Protocol Last Admin: 12/15/19 17:39 Dose: Not Given Documented by: Isosorbide Dinitrate (Isordil -) 5 mg PO BIDISORDIL [facility] Last Admin: 12/15/19 18:36 Dose: 5 mg Documented by: Prednisone (Deltasone -) 40 mg PO DAILY [facility] Last Admin: 12/15/19 17:21 Dose: 40 mg Documented by: Timolol Maleate (Timoptic 0.5%) 1 drop OU TID [facility] Last Admin: 12/15/19 17:23 Dose: 1 drop Documented by: - Objective Vital Signs: Vital Signs Temperature 99.6 F 12/15/19 15:49 Pulse Rate 88 12/15/19 17:45 Respiratory Rate 12/15/19 18:49 Blood Pressure 146/79 12/15/19 17:45 O2 Sat by Pulse Oximetry (%) 99 12/15/19 18:49 Eyes: Yes: WNL, Conjunctiva Clear, EOM Intact HENT: Yes: WNL, Atraumatic, Normocephalic Neck: Yes: WNL, Supple, Trachea Midline Cardiovascular: Yes: WNL, Regular Rate and Rhythm Respiratory: Yes: WNL, Regular, CTA Bilaterally Gastrointestinal: Yes: WNL, Normal Bowel Sounds Genitourinary: Yes: WNL Musculoskeletal: Yes: WNL Extremities: Yes: WNL Edema: No Edema: RUE: 1+ Integumentary: Yes: WNL Neurological: Yes: WNL, Alert, Oriented ...Motor Strength: WNL Psychiatric: Yes: WNL Labs: CBC, BMP 12/15/19 06:30 12/15/19 06:30 Assessment/Plan COPD (supposed to be on home O2 but not using it), Afib - one episode in 2017 during COPD exacerbation in NSR since - patient self d/c Eliquis - according to my records patient should be taking Eliquis, ACEI allergy, Cataract surgery,HFpEF, HTN, NIDDM (?diet controlled) and HLD who presents to the ER with 3 days of left upper extremity edema. No evidence of CHF this admission BNP 28. in NSR Plan; Restart AC BP control DVT plx
--- NOTE | 2019-12-15 20:41 | CONS ---
DATE OF CONSULTATION: DATE OF DICTATION: 12/15/2019 INFECTIOUS DISEASE CONSULTATION HISTORY OF PRESENT ILLNESS: This is a 69-year-old man admitted from home. He has a history of COPD, CHF, atrial fibrillation, and obesity. He has chronic leg swelling. Over the weekend he noted swelling of his left hand. It worsened over the last 3 days. He came to the ER. He denies any trauma. He has no fevers or chills. This all started on Sunday. He has never had this happen before. He has had no insect bites or any trauma. There is no recent travel. In the ER, he was noted to be hypoxic. He apparently is supposed to be on oxygen at home, but has been unable to get his home oxygen. PAST MEDICAL HISTORY: Notable for asthma, COPD, hypertension, CHF, hyperlipidemia, atrial fibrillation, and obesity. SURGICAL HISTORY: Cataracts. He is a former smoker. He quit 15 years ago. No alcohol or substance use. ALLERGIES: He is allergic to KEE INHIBITORS, which give him angioedema. As stated before, he has not recently had his oxygen at home. SOCIAL HISTORY: He lives with his . 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 MEDICATION: His medications at home include: 1. Lasix. 2. Zocor. 3. Proventil. 4. Combivent eyedrops including Symbicort and Ventolin. 5. Omeprazole. 6. Apixaban. 7. Cardizem. 8. Isordil. 9. . REVIEW OF SYSTEMS: As per HPI. No swelling of the hand. PHYSICAL EXAMINATION: General: He is a pleasant man in no acute distress. Vital Signs: T-max is 99.6, pulse 88, blood pressure 147/96, respiratory rate 20, he is saturating 99% on 3 L. HEENT: Normocephalic. Eyes are anicteric. Neck: Supple. Lungs: Clear to auscultation. Heart: Regular rate and rhythm. Abdomen: Soft, nontender. Extremities: He has no axillary adenopathy. His left forearm is slightly erythematous and swollen, extends to his left hand. There is no obvious cut. His pulses are intact. He has full range of motion of the elbow and wrist. Extremities have trace edema. LABORATORY: White count 7.9, hemoglobin 15, platelets 190, BUN and creatinine are 9 and 0.7. LFTs are normal. Hemoglobin A1c is 6.9. Urinalysis is negative. COVID-19 PCR is pending. Blood cultures are negative. He had a chest CTA that showed no evidence of PE. He had a duplex of his arm that was negative for DVT, and a chest x-ray that looked normal. IMPRESSION: 1. In summary, this is a 69-year-old man admitted from home with forearm cellulitis with hand swelling. Would obtain blood cultures and treat him with Ancef. 2. Obstructive sleep apnea. Chronic obstructive pulmonary disease on home oxygen managed per pulmonary. KIANNA GIBSON M.D. [id number]
[2019-12-15] MEDS ORDERED: ATORVASTATIN CA 20 MG TABLET (FP) PO SCH (22:00)
[2019-12-15] MEDS: APIXABAN 5 MG TABLET PO SCH (22:03)
[2019-12-16] MEDS: CEFAZOLIN 1 GM in DEXTROSE 5%-WATER - 50 ML IVPB SCH ×2 (02:30→10:05)
[2019-12-16] MEDS: BRIMONIDINE TARTRATE 0.2% OPHTHALMIC 5 ML BOTTLE OU SCH ×2 (06:17→14:05)
[2019-12-16] MEDS: TIMOLOL 0.5% OPHTHALMIC SOL 5 ML BOTTLE OU SCH ×2 (06:17→14:05)
[2019-12-16] MEDS: INSULIN SLIDING SCALE (NOVOLOG) 1 VIAL SQ SCH ×2 (06:46→11:53)
[2019-12-16] MEDS: APIXABAN 5 MG TABLET PO SCH (10:05)
[2019-12-16] MEDS: BUDESONIDE/FORMETEROL FUMARATE 160/4.5 mcg INHALER IH SCH (10:05)
[2019-12-16] MEDS: predniSONE 20 MG TABLET (UD) PO SCH (10:05)
[2019-12-16] MEDS: hydrALAZINE HCL 10 MG TABLET PO SCH (10:05)
[2019-12-16] MEDS: FUROSEMIDE 40 MG TABLET (FP) PO SCH (10:05)
[2019-12-16] MEDS: ISOSORBIDE DINITRATE 5 MG TABLET PO SCH (10:05)
[2019-12-16] MEDS: FAMOTIDINE 20 MG TABLET PO SCH (10:05)
[2019-12-16 10:26] VITALS: PULSE 91
--- NOTE | 2019-12-16 11:48 | PN ---
Progress Note, Physician Chief Complaint: LUE edema Afib History of Present Illness: NAD in chair LUE swelling improved wants to go home - Current Medication List Current Medications: Active Medications Acetaminophen (Tylenol -) 650 mg PO Q4H PRN PRN Reason: PAIN Albuterol/Ipratropium (Duoneb -) 1 amp NEB Q8H PRN PRN Reason: WHEEZING Apixaban (Eliquis -) 5 mg PO BID [facility] Last Admin: 12/16/19 10:05 Dose: 5 mg Documented by: Atorvastatin Calcium (Lipitor -) 20 mg PO HS [facility] Last Admin: 12/15/19 22:03 Dose: 20 mg Documented by: Brimonidine Tartrate (Alphagan 0.2% -) 1 drop OU TID [facility] Last Admin: 12/16/19 06:17 Dose: 1 drop Documented by: Budesonide/Formoterol Fumarate (Symbicort 160/4.5mcg -) 2 puff IH BID [facility] Last Admin: 12/16/19 10:05 Dose: 2 puff Documented by: Diltiazem HCl (Cardizem Cd -) 240 mg PO DAILY [facility] Last Admin: 12/16/19 10:05 Dose: 240 mg Documented by: Famotidine (Pepcid -) 20 mg PO DAILY [facility] Last Admin: 12/16/19 10:05 Dose: 20 mg Documented by: Furosemide (Lasix -) 40 mg PO DAILY [facility] Last Admin: 12/16/19 10:05 Dose: 40 mg Documented by: Hydralazine HCl (Apresoline -) 10 mg PO BID [facility] Last Admin: 12/16/19 10:05 Dose: 10 mg Documented by: Cefazolin Sodium 1 gm/ (Dextrose) 50 mls @ 100 mls/hr IVPB Q8H-IV [facility] Last Admin: 12/16/19 10:05 Dose: 100 mls/hr Documented by: Insulin Aspart (Novolog Vial Sliding Scale -) 1 vial SQ ACHS [facility]; Protocol Last Admin: 12/16/19 06:46 Dose: Not Given Documented by: Isosorbide Dinitrate (Isordil -) 5 mg PO BIDISORDIL [facility] Last Admin: 12/16/19 10:05 Dose: 5 mg Documented by: Prednisone (Deltasone -) 40 mg PO DAILY [facility] Last Admin: 12/16/19 10:05 Dose: 40 mg Documented by: Timolol Maleate (Timoptic 0.5%) 1 drop OU TID [facility] Last Admin: 12/16/19 06:17 Dose: 1 drop Documented by: - Objective Vital Signs: Vital Signs Temperature 98.2 F 12/16/19 05:43 Pulse Rate 91 H 12/16/19 10:15 Respiratory Rate 68 H 12/16/19 05:43 Blood Pressure 115/67 12/16/19 05:43 O2 Sat by Pulse Oximetry (%) 92 L 12/16/19 10:15 Constitutional: Yes: Well Nourished, No Distress, Calm Cardiovascular: Yes: Regular Rate and Rhythm Respiratory: Yes: Regular, CTA Bilaterally Gastrointestinal: Yes: Normal Bowel Sounds, Soft, Abdomen, Obese Genitourinary: Yes: WNL Musculoskeletal: Yes: WNL Extremities: Yes: Other (LUE swelling) Edema: No Peripheral Pulses WNL: Yes Neurological: Yes: Alert, Oriented Psychiatric: Yes: Alert, Oriented Labs: CBC, BMP 12/15/19 06:30 12/15/19 06:30 Problem List - Problems (1) Diabetes Assessment/Plan: -diabetic low sodium diet -BGM AC HS -A1c at 6.9 -ISS Problems reviewed: Yes Code(s): E11.9 - TYPE 2 DIABETES MELLITUS WITHOUT COMPLICATIONS (2) Cellulitis Assessment/Plan: -ID consult -afebrile -No leukocytosis -BC: pending -As per ID, IV cefazolin can be switched to cephalexin po Problems reviewed: Yes Code(s): L03.90 - CELLULITIS, UNSPECIFIED Qualifiers: Site of cellulitis of extremity: upper extremity Laterality: left Qualified Code(s): L03.114 - Cellulitis of left upper limb (3) Afib Assessment/Plan: -Restart AC -Encouraged the importance of AC and to run it by Cardiology if it ever needs to be stopped. Problems reviewed: Yes Code(s): I48.91 - UNSPECIFIED ATRIAL FIBRILLATION Qualifiers: Atrial fibrillation type: paroxysmal Qualified Code(s): I48.0 - Paroxysmal atrial fibrillation (4) COPD (chronic obstructive pulmonary disease) Assessment/Plan: -Pulmonary consult -Nasal O2 PRN to keep SpO2>90% -Pre and post ambulation SpO2 -SpO2 87% on ambulation, needs Home O2 Problems reviewed: Yes Code(s): J44.9 - CHRONIC OBSTRUCTIVE PULMONARY DISEASE, UNSPECIFIED Assessment/Plan See problem list
[2019-12-16 11:53] VITALS: BP 115/59; TEMP 98.5
--- NOTE | 2019-12-16 12:15 | PN ---
Progress Note (short form) - Note Progress Note: OOB to chair. Hand feels better, less swollen. Desaturated quickly to 85% off O2 and when ambulating. Intake & Output 12/13/19 12/14/19 12/15/19 12/16/19 23:59 23:59 23:59 23:59 Intake Total 830 670 Balance 830 670 Weight 236 lb Last Vital Signs Temp Pulse Resp BP Pulse Ox 98.5 F 91 H 20 115/59 L 92 L 12/16/19 10:00 12/16/19 10:15 12/16/19 10:00 12/16/19 10:00 12/16/19 10:15 Active Medications Acetaminophen (Tylenol -) 650 mg PO Q4H PRN PRN Reason: PAIN Albuterol/Ipratropium (Duoneb -) 1 amp NEB Q8H PRN PRN Reason: WHEEZING Apixaban (Eliquis -) 5 mg PO BID [facility] Last Admin: 12/16/19 10:05 Dose: 5 mg Documented by: Atorvastatin Calcium (Lipitor -) 20 mg PO HS [facility] Last Admin: 12/15/19 22:03 Dose: 20 mg Documented by: Brimonidine Tartrate (Alphagan 0.2% -) 1 drop OU TID [facility] Last Admin: 12/16/19 06:17 Dose: 1 drop Documented by: Budesonide/Formoterol Fumarate (Symbicort 160/4.5mcg -) 2 puff IH BID [facility] Last Admin: 12/16/19 10:05 Dose: 2 puff Documented by: Diltiazem HCl (Cardizem Cd -) 240 mg PO DAILY [facility] Last Admin: 12/16/19 10:05 Dose: 240 mg Documented by: Famotidine (Pepcid -) 20 mg PO DAILY [facility] Last Admin: 12/16/19 10:05 Dose: 20 mg Documented by: Furosemide (Lasix -) 40 mg PO DAILY [facility] Last Admin: 12/16/19 10:05 Dose: 40 mg Documented by: Hydralazine HCl (Apresoline -) 10 mg PO BID [facility] Last Admin: 12/16/19 10:05 Dose: 10 mg Documented by: Cefazolin Sodium 1 gm/ (Dextrose) 50 mls @ 100 mls/hr IVPB Q8H-IV [facility] Last Admin: 12/16/19 10:05 Dose: 100 mls/hr Documented by: Insulin Aspart (Novolog Vial Sliding Scale -) 1 vial SQ ACHS [facility]; Protocol Last Admin: 12/16/19 11:53 Dose: Not Given Documented by: Isosorbide Dinitrate (Isordil -) 5 mg PO BIDISORDIL [facility] Last Admin: 12/16/19 10:05 Dose: 5 mg Documented by: Prednisone (Deltasone -) 40 mg PO DAILY [facility] Last Admin: 12/16/19 10:05 Dose: 40 mg Documented by: Timolol Maleate (Timoptic 0.5%) 1 drop OU TID [facility] Last Admin: 12/16/19 06:17 Dose: 1 drop Documented by: Constitutional: Yes: No Distress, Calm, Obese Eyes: Yes: Conjunctiva Clear, EOM Intact HENT: Yes: Atraumatic, Normocephalic Neck: Yes: Supple, Trachea Midline Cardiovascular: Yes: Regular Rate and Rhythm Respiratory: Yes: Cough, Diminished, On Nasal O2, SOB on Exertion. No: Accessory Muscle Use, Rales, Rhonchi, SOB, Stridor, Tachypnea, Wheezes ...Inspection: Yes: WNL ...Clubbing: No Gastrointestinal: Yes: Normal Bowel Sounds, Soft, Abdomen, Obese Renal/: Yes: WNL Musculoskeletal: Yes: WNL Extremities: Yes: Erythema Edema: Yes Peripheral Pulses WNL: Yes Integumentary: Yes: WNL Neurological: Yes: WNL, Alert, Oriented ...Motor Strength: WNL Psychiatric: Yes: WNL, Alert, Oriented Labs: Laboratory Results - last 24 hr 12/15/19 12/15/19 12/16/19 17:35 22:01 06:37 POC Glucometer 136 122 139 12/16/19 11:42 POC Glucometer 126 Imaging - Results Chest X-ray: Report Reviewed, Image Reviewed Cat Scan: Report Reviewed, Image Reviewed Problem List - Problems (1) Cellulitis Code(s): L03.90 - CELLULITIS, UNSPECIFIED Qualifiers: Site of cellulitis of extremity: upper extremity Laterality: left Qualified Code(s): L03.114 - Cellulitis of left upper limb (2) Afib Code(s): I48.91 - UNSPECIFIED ATRIAL FIBRILLATION Qualifiers: Atrial fibrillation type: paroxysmal Qualified Code(s): I48.0 - Paroxysmal atrial fibrillation (3) Asthma Code(s): J45.909 - UNSPECIFIED ASTHMA, UNCOMPLICATED Qualifiers: Asthma severity: mild Asthma persistence: intermittent Asthma complication type: uncomplicated Qualified Code(s): J45.20 - Mild intermittent asthma, uncomplicated (4) CHF (congestive heart failure) Code(s): I50.9 - HEART FAILURE, UNSPECIFIED (5) COPD (chronic obstructive pulmonary disease) Code(s): J44.9 - CHRONIC OBSTRUCTIVE PULMONARY DISEASE, UNSPECIFIED (6) Chronic venous insufficiency Code(s): I87.2 - VENOUS INSUFFICIENCY (CHRONIC) (PERIPHERAL) (7) HLD (hyperlipidemia) Code(s): E78.5 - HYPERLIPIDEMIA, UNSPECIFIED (8) HTN (hypertension) Code(s): I10 - ESSENTIAL (PRIMARY) HYPERTENSION (9) Metabolic syndrome Code(s): E88.81 - METABOLIC SYNDROME (10) Nonischemic cardiomyopathy Code(s): I42.8 - OTHER CARDIOMYOPATHIES (11) PAF (paroxysmal atrial fibrillation) Code(s): I48.0 - PAROXYSMAL ATRIAL FIBRILLATION Assessment/Plan Will need new Home O2 set up by [facility] Supplemental O2 as needed Albuterol PRN Noted Prednisone No smoking Will need outpatient PFTs Sleep testing Dr Wesley NAKIA Screen - NAKIA History Previously diagnosed with Sleep Apnea: No If Yes, currently using CPAP to treat your NAKIA: No - SNORING Do you snore loudly (enough to be heard thru closed doors)?: Yes - TIRED Do you often feel tired, fatigued, or sleepy during daytime?: Yes - OBSERVED Has anyone observed you stop breathing during your sleep?: Yes - BLOOD PRESSURE Do you have or are being treated for high blood pressure?: Yes - BMI Answer Y if weight exceeds amount listed for your height: Yes .: HEIGHT & WEIGHT (lbs): 4'10" 167lbs; 4'11" 175 lbs; 5'0" 179lbs;. 5'1" 185lbs; 5'2" 191lbs; 5'3" 197lbs;. 5'4" 204lbs; 5'5" 210lbs; 5'6" 216lbs;. 5'7" 223lbs; 5'8" 230lbs; 5'9" 237lbs;. 5'10" 243lbs; 5'11" 250lbs; 6' 258lbs;. 6'1" 265lbs; 6'2" 272lbs; 6'3" 279lbs;. 6'4" 287lbs; 6'5" 295lbs - AGE Is your age over 50 yrs old?: Yes - NECK CIRCUMFERENCE Neck Circumference 40cm: Yes - GENDER Male: Yes - SCORE Total Score: 8 Score Interpretation: High Risk of NAKIA .: Interpretation: Score 0-2: Low Risk NAKIA. Score 3-4: Intermediate Risk NAKIA. Score 5-8: High Risk NAKIA Problem List - Problems (1) Cellulitis Code(s): L03.90 - CELLULITIS, UNSPECIFIED Qualifiers: Site of cellulitis of extremity: upper extremity Laterality: left Qualified Code(s): L03.114 - Cellulitis of left upper limb (2) Afib Code(s): I48.91 - UNSPECIFIED ATRIAL FIBRILLATION Qualifiers: Atrial fibrillation type: paroxysmal Qualified Code(s): I48.0 - Paroxysmal atrial fibrillation (3) Asthma Code(s): J45.909 - UNSPECIFIED ASTHMA, UNCOMPLICATED Qualifiers: Asthma severity: mild Asthma persistence: intermittent Asthma complication type: uncomplicated Qualified Code(s): J45.20 - Mild intermittent asthma, uncomplicated (4) CHF (congestive heart failure) Code(s): I50.9 - HEART FAILURE, UNSPECIFIED (5) COPD (chronic obstructive pulmonary disease) Code(s): J44.9 - CHRONIC OBSTRUCTIVE PULMONARY DISEASE, UNSPECIFIED (6) Chronic venous insufficiency Code(s): I87.2 - VENOUS INSUFFICIENCY (CHRONIC) (PERIPHERAL) (7) HLD (hyperlipidemia) Code(s): E78.5 - HYPERLIPIDEMIA, UNSPECIFIED (8) HTN (hypertension) Code(s): I10 - ESSENTIAL (PRIMARY) HYPERTENSION (9) Metabolic syndrome Code(s): E88.81 - METABOLIC SYNDROME (10) Nonischemic cardiomyopathy Code(s): I42.8 - OTHER CARDIOMYOPATHIES (11) PAF (paroxysmal atrial fibrillation) Code(s): I48.0 - PAROXYSMAL ATRIAL FIBRILLATION
--- NOTE | 2019-12-16 15:21 | PN ---
Progress Note, Physician Chief Complaint: Pt, with visiting, is OOB in chair. Asymptomatic. He says he was surprised to find he has diabetes. History of Present Illness: Mr. Hart is a 69 year old male with a significant past medical history of COPD/asthma, diastolic CHF, HTN, HLD, morbid obesity, sedentary lifestyle,DM, who presents to the ED with 3 days of left upper extremity edema. He denies any recent trauma to the extremity. He denies any recent long distance travel. Denies pain. Denies F/C. Denies CP/SOB. - Current Medication List Current Medications: Active Medications Acetaminophen (Tylenol -) 650 mg PO Q4H PRN PRN Reason: PAIN Albuterol/Ipratropium (Duoneb -) 1 amp NEB Q8H PRN PRN Reason: WHEEZING Apixaban (Eliquis -) 5 mg PO BID [facility] Last Admin: 12/16/19 10:05 Dose: 5 mg Documented by: Atorvastatin Calcium (Lipitor -) 20 mg PO HS [facility] Last Admin: 12/15/19 22:03 Dose: 20 mg Documented by: Brimonidine Tartrate (Alphagan 0.2% -) 1 drop OU TID [facility] Last Admin: 12/16/19 14:05 Dose: 1 drop Documented by: Budesonide/Formoterol Fumarate (Symbicort 160/4.5mcg -) 2 puff IH BID [facility] Last Admin: 12/16/19 10:05 Dose: 2 puff Documented by: Diltiazem HCl (Cardizem Cd -) 240 mg PO DAILY [facility] Last Admin: 12/16/19 10:05 Dose: 240 mg Documented by: Famotidine (Pepcid -) 20 mg PO DAILY [facility] Last Admin: 12/16/19 10:05 Dose: 20 mg Documented by: Furosemide (Lasix -) 40 mg PO DAILY [facility] Last Admin: 12/16/19 10:05 Dose: 40 mg Documented by: Hydralazine HCl (Apresoline -) 10 mg PO BID [facility] Last Admin: 12/16/19 10:05 Dose: 10 mg Documented by: Cefazolin Sodium 1 gm/ (Dextrose) 50 mls @ 100 mls/hr IVPB Q8H-IV [facility] Last Admin: 12/16/19 10:05 Dose: 100 mls/hr Documented by: Insulin Aspart (Novolog Vial Sliding Scale -) 1 vial SQ ACHS [facility]; Protocol Last Admin: 12/16/19 11:53 Dose: Not Given Documented by: Isosorbide Dinitrate (Isordil -) 5 mg PO BIDISORDIL [facility] Last Admin: 12/16/19 10:05 Dose: 5 mg Documented by: Prednisone (Deltasone -) 40 mg PO DAILY [facility] Last Admin: 12/16/19 10:05 Dose: 40 mg Documented by: Timolol Maleate (Timoptic 0.5%) 1 drop OU TID [facility] Last Admin: 12/16/19 14:05 Dose: 1 drop Documented by: - Objective Vital Signs: Vital Signs Temperature 98.5 F 12/16/19 10:00 Pulse Rate 91 H 12/16/19 10:15 Respiratory Rate 12/16/19 10:00 Blood Pressure 115/59 L 12/16/19 10:00 O2 Sat by Pulse Oximetry (%) 92 L 12/16/19 10:15 Constitutional: Yes: Calm, Obese Eyes: Yes: WNL HENT: Yes: WNL Neck: Yes: Supple Cardiovascular: Yes: S1, S2 Respiratory: Yes: Regular Gastrointestinal: Yes: Soft. No: Tenderness ...Rectal Exam: Yes: Deferred Genitourinary: No: Anuria Breast(s): Yes: WNL Musculoskeletal: Yes: Muscle Weakness Extremities: Yes: Cool Edema: No Peripheral Pulses WNL: Yes Integumentary: Yes: WNL Neurological: Yes: Alert, Oriented Psychiatric: Yes: WNL Labs: CBC, BMP 12/15/19 06:30 12/15/19 06:30 Abnormal Lab Results 12/15/19 06:30 Carbon Dioxide 34 H Anion Gap 7 L Albumin 3.3 L - ....Imaging Chest X-ray: Image Reviewed EKG: Image Reviewed Assessment/Plan COPD (supposed to be on home O2 but not using it), Afib - one episode in 2017 during COPD exacerbation in [place] since - patient self d/c Eliquis - according to Dr. Mejia's records, patient should be taking Eliquis. ACEI allergy, Cataract surgery,HFpEF, HTN, NIDDM (?diet controlled) and HLD who presents to the ER with 3 days of left upper extremity edema. No evidence of CHF this admission BNP 28. in NSR r/o sleep apnea Plan; Restarted AC for PAF; reevaluate as outpatient. Imdur and hydralazine discontinued; f/u BP. Unable to take ACEI (allergy); may investigate whether tolerates ARB (HTN; CHF; DM). F/u TSH and lipids (ordered). The imperative need to change diet, decrease portions, decrease weight, and increase exercise was discussed in detail with him and his . He is surprised he has developed diabetes. Sleep study to r/o sleep apnea, if not done already.
== END 2019-12-16 15:51 | disposition home or self-care (01) | DRG 603 ==
LOC: JER 17:50 → JERBED 21:08 → J6WEST-2 12-15 15:26
PROVIDERS: ADMIT Internal Medicine; ATTEND Family Medicine
DX: L03.114 Cellulitis of left upper limb (principal); Z68.41 Body mass index [BMI] 40.0-44.9, adult; I42.9 Cardiomyopathy, unspecified; I50.30 Unspecified diastolic (congestive) heart failure; J96.10 Chronic respiratory failure, unspecified whether with hypoxia or hypercapnia; J98.11 Atelectasis; J44.9 Chronic obstructive pulmonary disease, unspecified; I48.0 Paroxysmal atrial fibrillation; E66.01 Morbid (severe) obesity due to excess calories; J45.909 Unspecified asthma, uncomplicated; E78.5 Hyperlipidemia, unspecified; E11.51 Type 2 diabetes mellitus with diabetic peripheral angiopathy without gangrene; I11.0 Hypertensive heart disease with heart failure; E88.81 Metabolic syndrome and other insulin resistance
CPT/HCPCS: 36415; 71045-TC-FY; 71275-TC; 80053; 80061; 81003; 82550; 82803; 82962; 83036; 83721; 83735; 83880; 84100; 84443; 84484; 84550; 85025; 87040; 93005; 93010; 93971; 94761; 99285-25; U0003

== ENCOUNTER 2021-05-08 14:32 | Emergency (ER) | payer OTHER ==
[2021-05-08 14:35] VITALS: BP 150/81; PULSE 76; TEMP 98; BMI 37.9
[2021-05-08 16:16] LABS: BASO % 0.5 % (0-2.0); HEMOGLOBIN 15.2 GM/dL (11.7-16.9); LYMPH % 26.5 % (8-40); MCH 29.4 pg (25.7-33.7); MEAN CELL VOLUME 89.3 fl (80-96); MEAN PLT VOLUME 8.5 fl (7.5-11.1); MONO % 10.8 % (3.8-10.2); NEUT % 60.2 % (42.8-82.8); PLATELET COUNT 219 10^3/uL (134-434); RBC 5.15 M/mm3 (4.00-5.60); RDW 15.1 % (11.9-15.9); WHITE BLOOD COUNT 7.3 K/mm3 (4.0-10.0)
[2021-05-08 16:40] LABS: CALCIUM 9.2 mg/dL (8.5-10.1)
[2021-05-08 16:41] LABS: ALBUMIN 3.3 g/dl (3.4-5.0); BLOOD UREA NITROGEN 12.1 mg/dL (7-18)
[2021-05-08 16:45] LABS: CREATININE 0.8 mg/dL (0.55-1.3)
[2021-05-08 16:46] LABS: BILIRUBIN,TOTAL 0.5 mg/dL (0.2-1); TOT PROT 7.9 g/dl (6.4-8.2)
== END 2021-05-08 17:34 | disposition home or self-care (01) ==
LOC: JER 14:32
DX: G51.0 Bell's palsy (principal)
CPT/HCPCS: 36415; 80053; 85025; 86618; 99283-25

== ENCOUNTER 2022-10-03 07:44 | Emergency (ER) | payer OTHER ==
[2022-10-03 07:53] VITALS: BP 148/77; PULSE 92; RESP 16; TEMP 98.2; BMI 35.7
[2022-10-03] MEDS ORDERED: KETOROLAC TROMETHAMINE 30 MG/1 ML VIAL IM ONE (08:20)
[2022-10-03] MEDS ORDERED: KETOROLAC TROMETHAMINE 30 MG/1 ML VIAL ONE (08:25)
== END 2022-10-03 09:38 | disposition home or self-care (01) ==
LOC: JER 07:44
PROC: 3E0233Z Introduction of Anti-inflammatory into Muscle, Percutaneous Approach (ICD-10-PCS; principal; 2022-10-03)
DX: M79.604 Pain in right leg (principal); S86.911A Strain of unspecified muscle(s) and tendon(s) at lower leg level, right leg, initial encounter; M25.551 Pain in right hip; M25.561 Pain in right knee; X58.XXXA Exposure to other specified factors, initial encounter
CPT/HCPCS: 96372; 99284-25

== ENCOUNTER 2022-10-06 09:07 | Emergency (ER) | payer OTHER ==
[2022-10-06 09:22] VITALS: BP 155/92; PULSE 92; RESP 17; TEMP 98.9; BMI 36.3
== END 2022-10-06 10:08 | disposition home or self-care (01) ==
LOC: JERFT 09:07
DX: S40.022A Contusion of left upper arm, initial encounter (principal); X58.XXXA Exposure to other specified factors, initial encounter
CPT/HCPCS: 99282-25

== ENCOUNTER 2022-11-07 04:15 | Day surgery (SDC) | payer OTHER ==
[2022-11-06 15:01] VITALS: BMI 36.8
[2022-11-07] MEDS ORDERED: BUPIVACAINE HCL/PF 0.25% (2.5MG/ML) 10 ML VIAL ONE (12:49)
[2022-11-07] MEDS ORDERED: BUPIVACAINE HCL/PF 0.5% (5MG/ML) 10 ML VIAL ONE (12:50)
[2022-11-07] MEDS ORDERED: LIDOCAINE HCL/PF 1% SDV 5ML VIAL ONE (12:50)
[2022-11-07] MEDS ORDERED: BUPIVACAINE HCL/PF 0.75% 10 ML VIAL PNB ONE (13:24)
[2022-11-07] MEDS ORDERED: LIDOCAINE HCL 1% PRESERVATIVE FREE - 30ML VIAL IJ ONE (13:24)
[2022-11-07] MEDS ORDERED: BUPIVACAINE HCL/PF 0.5% (5MG/ML) 10 ML VIAL IJ ONE (13:24)
[2022-11-07] MEDS ORDERED: TRIAMCINOLONE ACETONIDE 40 MG/ML 10 ML VIAL IJ ONE (13:24)
[2022-11-07 14:24] VITALS: BP 158/86; PULSE 66; RESP 18; TEMP 98.1
[2022-11-07] MEDS ORDERED: ACETAMINOPHEN 500 MG TABLET (FP) PO PRN (15:30)
== END 2022-11-07 14:26 | disposition home or self-care (01) ==
LOC: JASU-SURG 04:15
PROVIDERS: ATTEND Pain Medicine Pain Medicine
PROC: 3E0U3BZ Introduction of Anesthetic Agent into Joints, Percutaneous Approach (ICD-10-PCS; 2022-11-07)
PROC: 3E0U33Z Introduction of Anti-inflammatory into Joints, Percutaneous Approach (ICD-10-PCS; principal; 2022-11-07 13:00)
DX: M16.11 Unilateral primary osteoarthritis, right hip (principal)
CPT/HCPCS: 76000-TC-FY

== ENCOUNTER 2023-07-17 04:10 | Day surgery (SDC) | payer OTHER ==
[2023-07-12 16:07] VITALS: BMI 34.3
[2023-07-17] MEDS ORDERED: BUPIVACAINE HCL/PF 0.75% 10 ML VIAL ONE (07:34)
[2023-07-17] MEDS ORDERED: LIDOCAINE HCL/PF 1% SDV 5ML VIAL ONE (07:34)
[2023-07-17] MEDS: BUPIVACAINE HCL/PF 0.5% (5 MG/ML) 30 ML VIAL IJ ONE ×3 (09:05→09:09)
[2023-07-17] MEDS: LIDOCAINE HCL 1% PRESERVATIVE FREE - 30ML VIAL IJ ONE (09:05)
[2023-07-17] MEDS ORDERED: ACETAMINOPHEN 500 MG TABLET (FP) PO PRN (09:29)
[2023-07-17 09:35] VITALS: PULSE 72; TEMP 97.6
[2023-07-17 10:28] VITALS: BP 139/83; RESP 20
== END 2023-07-17 09:50 | disposition home or self-care (01) ==
LOC: JASU-SURG 04:10
PROVIDERS: ATTEND Pain Medicine Pain Medicine
PROC: 3E0T3BZ Introduction of Anesthetic Agent into Peripheral Nerves and Plexi, Percutaneous Approach (ICD-10-PCS; principal; 2023-07-17 09:00)
DX: M47.816 Spondylosis without myelopathy or radiculopathy, lumbar region (principal)
CPT/HCPCS: 76000-TC-FY